=== PATIENT | male | born 1965 | race Caucasian/White ===

== ENCOUNTER 2021-07-02 08:03 | Outpatient (REF) | payer MEDICARE, SELFPAY ==
--- NOTE | ~2021-07-02 | XR_ITS ---
EXAMINATION: XR CERVICAL SPINE CLINICAL INFORMATION: Radiculopathy COMPARISON: None TECHNIQUE: 5 views FINDINGS: Postsurgical changes with anterior spinal fusion hardware at C4-C7. No evidence of hardware complications. Posterior alignment is maintained without significant subluxation. No acute fractures seen. Prevertebral soft tissues within normal limits. Lung apices are clear. XR/XR cervical spine 3V IMPRESSION: Postsurgical changes, with anterior spinal fusion hardware C4-C7. No evidence of acute fracture.
== END 2021-07-02 08:04 | disposition home or self-care (01) ==
LOC: HO.XRAY 08:03
PROVIDERS: PCP Internal Medicine; Visit Provider Physician Assistant Surgical
DX: M54.12 Radiculopathy, cervical region (principal)
CPT/HCPCS: 72040

== ENCOUNTER 2021-08-24 21:45 | Inpatient (IN) | payer MEDICARE, SELFPAY ==
--- NOTE | ~2021-08-24 | XR_ITS ---
EXAMINATION: XR CHEST CLINICAL INFORMATION: Shortness of breath. COMPARISON: Most recent chest radiograph dated 11/17/2019. TECHNIQUE: Frontal view of the chest was obtained. FINDINGS: No focal airspace consolidation. No pleural effusion or pneumothorax. Partially visualized cervical spine stabilization hardware. Stable cardiomediastinal silhouette. XR/XR chest 1V IMPRESSION: No acute cardiopulmonary findings.
--- NOTE | ~2021-08-24 | CT_ITS ---
EXAMINATION: CT HEAD WITHOUT CONTRAST CLINICAL INFORMATION: Unresponsive episode COMPARISON: 10/14/2014 TECHNIQUE: Contiguous axial imaging was performed from the skull base to vertex without intravenous administration of contrast. This CT examination was performed using dose optimization techniques as appropriate, variously including the following: *Automated exposure control *Adjustment of mA and/or kV according to patient size (this includes techniques or standardized protocols for targeted exams where dose is matched to indication/reason for exam; i.e. extremities or head) *Use of iterative reconstruction technique DLP: 805 mGy-cm FINDINGS: There is no evidence of acute intracranial hemorrhage or territorial infarction. No abnormal mass effect or midline shift is seen. Sweet to white matter differentiation is well preserved. No extra-axial fluid collections are identified. The ventricles are normal in size. There is no abnormal attenuation within the brain parenchyma. The osseous structures and soft tissues are normal. There is partial opacification of the bilateral ethmoid air cells. Extensive opacification of the left maxillary sinus. Bilateral maxillary sinus mucosal thickening. The mastoid air cells are well-aerated. CT/CT head/brain wo con IMPRESSION: No acute intracranial pathology.
[2021-08-24 21:52] VITALS: BP 122/78; PULSE 130; O2SAT 93
[2021-08-24 22:01] VITALS: BP 126/77; PULSE 106; RESP 24; TEMP 36.5; O2SAT 4; BMI 51.7
--- NOTE | 2021-08-24 22:02 | ECG_ITS ---
Test Reason : OVERDOSE Blood Pressure : / mmHG Vent. Rate : 101 BPM Atrial Rate : 101 BPM P-R Int : 176 ms QRS Dur : 088 ms QT Int : 368 ms P-R-T Axes : 058 -58 062 degrees QTc Int : 477 ms Sinus tachycardia Left axis deviation Inferior infarct , age undetermined Abnormal ECG When compared with ECG of 14-OCT-2014 12:21, Vent. rate has increased BY 49 BPM Inferior infarct is now Present T wave inversion no longer evident in Inferior leads Referred By: Cara Salomon Electronically Signed By:FRANTZ CONTRERAS MD
[2021-08-24 23:08] VITALS: BP 96/49; PULSE 95; RESP 20
--- NOTE | 2021-08-24 23:40 | ED.OVERDOSE ---
HPI - Overdose General Chief Complaint: Overdose Stated Complaint: od Time Seen by Provider: 08/24/21 22:02 Source: patient and EMS Mode of arrival: EMS History of Present Illness HPI Narrative: 55-year-old male brought in by EMS who reports that patient overdosed and required 12 mg of Narcan in the field but on asking the patient he adamantly states that he did not take any illicit drugs. Related Data Allergies Allergy/AdvReac Type Severity Reaction Status Date / Time No Known Allergies Allergy Mild NOT Unverified 05/30/20 14:53 APPLICABLE Review of Systems Review of Systems: Pertinent positives and negatives as stated in HPI 10 point review of systems is otherwise negative. PMFSH Past Medical History Source: nursing notes reviewed Social History Social History Advance Directives: No Advance Directives Information Provided: Yes Physical Exam Vital Signs: Vital Signs: Last Vital Signs Temp 97.7 F 08/24/21 22:01 Pulse 95 08/24/21 23:08 Resp 20 08/25/21 00:07 BP 96/49 L 08/24/21 23:08 Pulse Ox 4 L 08/24/21 22:01 Oxygen Flow Rate 4 08/24/21 22:01 BMI result Body Mass Index 51.7 VITAL SIGNS: Reviewed. GENERAL: Well developed, well nourished, in no acute distress. HEAD: Normocephalic/atraumatic EYES: PERRLA, EOMI OROPHARYNX: no oral lesions noted, posterior pharynx clear NECK: Supple, no adenopathy LUNGS: Normal breath sounds. No adventitious sounds or accessory muscle use. SpO2<94> CARDIOVASCULAR: Regular rate and rhythm without noted murmurs, no JVD or lower extremity edema. ABDOMEN: Obese, Soft, non-tender, non-distended with bowel sounds. RIGHT SHOULDER: No deformity noted no clicking on passive range of motion, palpable radial/ulnar pulses with good capillary refill and sensation is intact SKIN: Inspection of the skin reveals no rashes NEUROLOGIC: Alert and oriented x 4. Tremulous, Strength and sensation to light touch were grossly intact x 4. Course Course Course Narrative: 55-year-old male with history and clinical presentation suggestive of possible overdose and shortly after arrival patient was noted to be hypoxic and on clinical re-evaluation was noted to have rales, patient was placed on CPAP with good response and basic labs were obtained as well as EKG and chest x-ray. Patient was hypoxic and complaining of chest discomfort. 2330: Informed by nursing that patient was hypotensive, ordered 1 L IV bolus and decreased CPAP PEEP from 10-5 with good response. Patient remains easily arousable and denies any chest pain or shortness of breath at this time. On review of his documentation history patient is noted to have obstructive sleep apnea. Patient denies chest pain at this time. Review of all investigations demonstrates a leukocytosis of 20 without evidence in abdomen or chest of infectious etiology. At this time we do not have a urinalysis and troponins noted to be trending upwards, and suspect that this is primarily secondary to patient's unresponsive episode. On review of EMS documentation, patient was initially provided 4 mg of Narcan by police and then additional 8 mg by EMS. Although no compressions were required patient did require supplemental respiratory support with Ambu bag. Patient able to have CPAP titrated off and is now oxygenating at approximately 93-94% on 3 L nasal cannula. It has been noted that Q-waves within the inferior distribution are new since 03/2020 correlation with patient's symptoms and high sensitivity troponin levels less consistent with this being a recent/acute event. I discussed this case with the inpatient hospitalist who accepts admission. MDM - Overdose Lab Data Result diagrams: 08/24/21 23:32 08/24/21 23:32 Labs: Lab Results 08/24/21 08/24/21 08/25/21 Range/Units 23:32 23:32 01:30 WBC 20.4 H (4.8-10.8) X10*3/uL RBC 5.18 (4.60-5.80) X10*6/uL Hgb 15.1 (14.0-18.0) g/dl Hct 47.3 (42.0-52.0) % MCV 91.3 (80.0-98.0) fL MCH 29.2 (27.0-33.0) pg MCHC 31.9 (31.0-36.0) g/dl RDW 13.3 (11.0-16.0) % Plt Count 295 (160-400) X10*3/uL MPV 10.7 (9.4-12.4) fL Immature Gran % (Auto) 0.6 H (0.0-0.4) % Neut % (Auto) 89.2 H (45-73) % Lymph % (Auto) 5.4 L (20-40) % [place] % (Auto) 4.5 (2-11) % Eos % (Auto) 0.1 (0-4) % Baso % (Auto) 0.2 (0-2) % Lymph # (Auto) 1.1 L (1.2-4.9) X10*3/uL [place] # (Auto) 0.9 (0.1-1.2) X10*3/uL Eos # (Auto) 0.0 (0.0-0.4) X10*3/uL Baso # (Auto) 0.0 (0.0-0.2) X10*3/uL Abs Immat Gran (auto) 0.12 H (0.00-0.03) X10*3/uL Absolute Neuts (auto) 18.2 H (2.0-8.3) x10*3/uL Absolute Nucleated RBC 0.000 (0.0-0.012) X10*3/uL Nucleated RBC % (auto) 0.0 (0.0-0.2) /100WBC Sodium 142 (135-145) mmol/L Potassium 4.4 (3.3-5.1) mmol/L Chloride 104 (96-108) mmol/L Carbon Dioxide 31 H (22-29) mmol/L Anion Gap 11 L (12-20) BUN 15 (9-16) mg/dL Creatinine 1.35 (0.5-1.4) mg/dL Estim Creat Clear Calc 84.9 Estimated GFR 54 Random Glucose 128 H (60-115) mg/dL Lactic Acid (0.5-2.0) mmol/L Calcium 9.4 (8.4-10.2) mg/dL Total Bilirubin 0.3 (0.0-1.0) mg/dL AST 20 (5-37) U/L ALT 22 (0-40) U/L Alkaline Phosphatase 126 H (39-117) U/L Troponin I High Sens 104.5 H* (<3.5-35.0) ng/L B-Natriuretic Peptide (<100) pg/mL Total Protein 6.7 (6.5-8.0) g/dL Albumin 3.8 (3.5-5.0) g/dL 08/25/21 08/25/21 Range/Units 01:39 23:32 WBC (4.8-10.8) X10*3/uL RBC (4.60-5.80) X10*6/uL Hgb (14.0-18.0) g/dl Hct (42.0-52.0) % MCV (80.0-98.0) fL MCH (27.0-33.0) pg MCHC (31.0-36.0) g/dl RDW (11.0-16.0) % Plt Count (160-400) X10*3/uL MPV (9.4-12.4) fL Immature Gran % (Auto) (0.0-0.4) % Neut % (Auto) (45-73) % Lymph % (Auto) (20-40) % [place] % (Auto) (2-11) % Eos % (Auto) (0-4) % Baso % (Auto) (0-2) % Lymph # (Auto) (1.2-4.9) X10*3/uL [place] # (Auto) (0.1-1.2) X10*3/uL Eos # (Auto) (0.0-0.4) X10*3/uL Baso # (Auto) (0.0-0.2) X10*3/uL Abs Immat Gran (auto) (0.00-0.03) X10*3/uL Absolute Neuts (auto) (2.0-8.3) x10*3/uL Absolute Nucleated RBC (0.0-0.012) X10*3/uL Nucleated RBC % (auto) (0.0-0.2) /100WBC Sodium (135-145) mmol/L Potassium (3.3-5.1) mmol/L Chloride (96-108) mmol/L Carbon Dioxide (22-29) mmol/L Anion Gap (12-20) BUN (9-16) mg/dL Creatinine (0.5-1.4) mg/dL Estim Creat Clear Calc Estimated GFR Random Glucose (60-115) mg/dL Lactic Acid 1.3 (0.5-2.0) mmol/L Calcium (8.4-10.2) mg/dL Total Bilirubin (0.0-1.0) mg/dL AST (5-37) U/L ALT (0-40) U/L Alkaline Phosphatase (39-117) U/L Troponin I High Sens 61.4 H (<3.5-35.0) ng/L B-Natriuretic Peptide 19 (<100) pg/mL Total Protein (6.5-8.0) g/dL Albumin (3.5-5.0) g/dL ECG Data Attestation: I personally reviewed and interpreted this ECG as follows: Prior ECG tracings: available for review (03/21/2020 stress test) Interpretation: Sinus tachycardia, HR-101, no STEMI, but noted Q-waves in leads 2, 3, and AVF which are changes from the stress test obtained in March of 2020. MA/QRS/QTC are within normal limits. Discharge Plan Discharge Clinical Impression: Unresponsive episode, Hypoxia, Elevated troponin level Patient Disposition: Admitted As Inpatient
[2021-08-24 23:50] LABS: Basophils Percent Auto 0.2 % (0-2); Eosinophils Percent Auto 0.1 % (0-4); Hematocrit 47.3 % (42.0-52.0); Hemoglobin 15.1 g/dl (14.0-18.0); Imm Gran Abs Auto 0.12 X10*3/uL (0.00-0.03); Imm Gran Pct Auto 0.6 % (0.0-0.4); Lymphocytes Absolute Auto 1.1 X10*3/uL (1.2-4.9); Lymphocytes Percent Auto 5.4 % (20-40); MANUAL DIFF FLAG NO; Mean Corpuscular HGB Conc 31.9 g/dl (31.0-36.0); Mean Corpuscular Hemoglobin 29.2 pg (27.0-33.0); Mean Corpuscular Volume 91.3 fL (80.0-98.0); Mean Platelet Volume 10.7 fL (9.4-12.4); Monocytes Absolute Auto 0.9 X10*3/uL (0.1-1.2); Monocytes Percent Auto 4.5 % (2-11); Neutrophils Absolute Auto 18.2 x10*3/uL (2.0-8.3); Neutrophils Percent Auto 89.2 % (45-73); Platelet Count 295 X10*3/uL (160-400); Red Blood Count 5.18 X10*6/uL (4.60-5.80); Red Cell Distribution Width 13.3 % (11.0-16.0); White Blood Count 20.4 X10*3/uL (4.8-10.8)
[2021-08-25 00:07] VITALS: PULSE 94; RESP 20; O2SAT 93
[2021-08-25 00:07] LABS: Alanine Aminotransferase 22 U/L (0-40); Albumin Level 3.8 g/dL (3.5-5.0); Alkaline Phosphatase 126 U/L (39-117); Anion Gap 11 (12-20); Aspartate Amino Transferase 20 U/L (5-37); Bilirubin Total 0.3 mg/dL (0.0-1.0); Blood Urea Nitrogen 15 mg/dL (9-16); Calcium 9.4 mg/dL (8.4-10.2); Carbon Dioxide 31 mmol/L (22-29); Chloride 104 mmol/L (96-108); Creatinine Clr Calc Pharmacy 84.9; Estimated Glomerular Filt Rate 54; Glucose Random 128 mg/dL (60-115); Potassium 4.4 mmol/L (3.3-5.1); Sodium 142 mmol/L (135-145); Total Protein 6.7 g/dL (6.5-8.0)
[2021-08-25 00:44] LABS: B Type Natriuretic Peptide 19 pg/mL (<100); Troponin-I High Sensitivity 61.4 ng/L (<3.5-35.0)
--- NOTE | 2021-08-25 01:23 | HO.SUDE ---
Pt on bipap and sleeping. CARE/recovery team will approach pt again in the morning to complete SUDE.
[2021-08-25 01:58] LABS: Troponin-I High Sensitivity 104.5 ng/L (<3.5-35.0)
[2021-08-25 01:58] LABS: Lactic Acid 1.3 mmol/L (0.5-2.0)
[2021-08-25] MEDS: Piperacillin Sodium/Tazobactam 3.375 GM in 0.9 % Sodium Chloride 50 ML IV (02:11)
[2021-08-25] MEDS: 0.9 % Sodium Chloride 1,000 ML 999 ML IV ×2 (02:13→03:30)
--- NOTE | 2021-08-25 02:14 | ECG_ITS ---
Test Reason : SOB Blood Pressure : / mmHG Vent. Rate : 079 BPM Atrial Rate : 079 BPM P-R Int : 134 ms QRS Dur : 094 ms QT Int : 386 ms P-R-T Axes : 000 -45 -06 degrees QTc Int : 442 ms Sinus rhythm with marked sinus arrhythmia Left axis deviation Inferior infarct (cited on or before 24-AUG-2021) Abnormal ECG When compared with ECG of 24-AUG-2021 22:21, Nonspecific T wave abnormality now evident in Inferior leads Referred By: Cara Salomon Electronically Signed By:FRANTZ CONTRERAS MD
--- NOTE | 2021-08-25 02:50 | P.HPHOSP_ITS ---
History of Present Illness Date of Service: 08/25/21 Chief Complaint: unresponsive episode 55-year-old male with past medical history of hypertension, hyperlipidemia, depression, insomnia presented to the hospital with a chief complaint of unresponsive episode. For ER team patient was brought in by the EMS. And EMS mentioned that patient had an unresponsive episode at home; EMS noted him unresponsive on the floor, bradypnea, pinpoint pupils-initially patient was given Narcan 4 mg by police followed by EMS give another for the 4 mg of Narcan; patient still did not respond; patient was bagged briefly and given another 4 of Narcan with improvement in the mental status. Subsequently brought into the hospital for further evaluation. Patient mentioned that he does not recall the event. Denies any drug overdose. Mentioned that he took his gabapentin 900 mg and trazodone 300 mg and went to bed. Denies any fever chills cough. denies any chest pain palpitations lightheadedness or dizziness. Denies any GI or symptoms. Review of all other systems is negative except mentioned above ER course: Per ER team patient's pupils were normal on presentation; exam grossly nonfocal; chest x-ray showed no acute findings; urinalysis/U tox pending. EKG showed Q- waves in the inferior leads which are new complaint to the EKG from 2019. Patient denied any chest pain. Troponins elevated to 104 improved to 61. Admitted to the hospital for further management PMFSH Pertinent family history: mentions heart disease runs in the family Social History Advance Directives: No Advance Directives Information Provided: Yes Meds Allergies Allergy/AdvReac Type Severity Reaction Status Date / Time No Known Allergies Allergy Mild NOT Unverified 05/30/20 14:53 APPLICABLE Active Medications: Current Medications Acetaminophen (Acetaminophen 325 Mg Tablet) 650 mg PO Q6H PRN PRN Reason: Pain, Mild (Pain Scale 1-3) Enoxaparin Sodium (Enoxaparin Sodium 40 Mg/0.4 Ml Syringe) 40 mg SUBCUT Q24H ALEENA Sodium Chloride (Ns) 1,000 mls @ 50 mls/hr IVCONT .Q20H ALEENA Melatonin (Melatonin 3 Mg Tablet) 6 mg PO BEDTIME PRN PRN Reason: Insomnia Morphine Sulfate (Morphine Sulfate 4 Mg/Ml Cartridge) 1 mg IVPUSH Q4H PRN; Protocol PRN Reason: Pain, SOB Nitroglycerin (Nitroglycerin 0.4 Mg Tab.Subl) 0.4 mg SUBLINGUAL Q5MX3 PRN PRN Reason: Chest Pain Senna (Sennosides 8.6 Mg Tablet) 17.2 mg PO BEDTIME PRN PRN Reason: Constipation Sodium Chloride (0.9 % Sodium Chloride Flush 3 Ml Syringe) 3 ml IVFLUSH QSHIFT ALEENA Physical Exam Vital Signs and Narrative: Vital Signs: Last Vital Signs Temp 97.7 F 08/24/21 22:01 Pulse 95 08/24/21 23:08 Resp 20 08/25/21 00:07 BP 96/49 L 08/24/21 23:08 Pulse Ox 4 L 08/24/21 22:01 Oxygen Flow Rate 4 08/24/21 22:01 BMI result Body Mass Index 51.7 Gen: Appears be in no acute distress HEENT: NCAT, Moist mucosa. Pupils normal in size Pulmonary: Coarse breath sounds CVS: Normal S1-S2 Abdomen: BS+, Soft, Nontender Extremities: Warm well perfused Neuro: Alert and awake. oriented x3. Grossly nonfocal. Results Labs CBC and Chem 7: 08/24/21 23:32 08/24/21 23:32 Labs: Laboratory Results - last 24 hr 08/24/21 08/24/21 08/25/21 23:32 23:32 01:30 MCV 91.3 MCH 29.2 MCHC 31.9 RDW 13.3 Plt Count 295 MPV 10.7 Immature Gran % (Auto) 0.6 H Neut % (Auto) 89.2 H Lymph % (Auto) 5.4 L [place] % (Auto) 4.5 Eos % (Auto) 0.1 Baso % (Auto) 0.2 Lymph # (Auto) 1.1 L [place] # (Auto) 0.9 Eos # (Auto) 0.0 Baso # (Auto) 0.0 Abs Immat Gran (auto) 0.12 H Absolute Neuts (auto) 18.2 H Absolute Nucleated RBC 0.000 Nucleated RBC % (auto) 0.0 Anion Gap 11 L Estim Creat Clear Calc 84.9 Estimated GFR 54 Random Glucose 128 H Lactic Acid Calcium 9.4 Total Bilirubin 0.3 AST 20 ALT 22 Alkaline Phosphatase 126 H Troponin I High Sens 104.5 H* B-Natriuretic Peptide Total Protein 6.7 Albumin 3.8 08/25/21 08/25/21 01:39 23:32 MCV MCH MCHC RDW Plt Count MPV Immature Gran % (Auto) Neut % (Auto) Lymph % (Auto) [place] % (Auto) Eos % (Auto) Baso % (Auto) Lymph # (Auto) [place] # (Auto) Eos # (Auto) Baso # (Auto) Abs Immat Gran (auto) Absolute Neuts (auto) Absolute Nucleated RBC Nucleated RBC % (auto) Anion Gap Estim Creat Clear Calc Estimated GFR Random Glucose Lactic Acid 1.3 Calcium Total Bilirubin AST ALT Alkaline Phosphatase Troponin I High Sens 61.4 H B-Natriuretic Peptide 19 Total Protein Albumin Imaging Radiologist's Impressions: Impressions Chest X-Ray 08/24/21 22:29 IMPRESSION: No acute cardiopulmonary findings. Assessment and Plan (1) Unresponsive episode: Status: Acute 55-year-old male with past medical history of hypertension, hyperlipidemia, depression, insomnia presented to the hospital with a chief comp laint of unresponsive episode. unresponsive episode: Patient currently improved. Exam nonfocal. Will also obtain a CT head. Patient received 12 mg of Narcan at home by the EMS as patient noted to have bradypnea, pinpoint pupils. U tox pending ? Related to his home medications trazodone 300 mg and gabapentin 900 mg that he took prior to going to bed-> Will defer to the day hospitalist for medication adjustments if needed at the time of discharge. Chest x-ray showed no acute findings EKG showed Q-waves in the inferior leads. Troponins elevated- Presumed to be secondary to demand. Patient denies any chest pain. Echocardiogram. Cardiology consult. Acute hypoxia: Patient became acutely hypoxic in the ER. Briefly based on the CPAP - tapered down to nasal cannula once improved. Chest x-ray showed no acute findings. Nebulizations p.r.n.. DVT prophylaxis: SCD boots Code status: Full code Quality Stroke Does the patient have a stroke diagnosis?: No VTE Prior VTE?: No VTE Risk Level:: Medical - moderate - high VTE Device Contraindication: Treatment Not Indicated VTE Drug Contraindication: N/A - Med Ordered
[2021-08-25 04:13] LABS: COVID-19 Test Negative (Negative); IDNOW Serial# 9DD0AD1C
[2021-08-25] MEDS: 0.9 % Sodium Chloride 1,000 ML 50 ML IVCONT (05:33)
[2021-08-25] MEDS: Enoxaparin Sodium 40 MG/0.4 ML SYRINGE SUBCUT (05:39)
--- NOTE | 2021-08-25 05:52 | PC.NURSE ---
This RN spoke with Edy (significant other) to gain background, it was reported that patient was fine eating a snack before bed and that she woke up to her daughter screaming.
[2021-08-25 05:56] LABS: MANUAL DIFF FLAG NO
[2021-08-25 06:00] LABS: Basophils Percent Auto 0.2 % (0-2); Hematocrit 43.8 % (42.0-52.0); Imm Gran Abs Auto 0.09 X10*3/uL (0.00-0.03); Imm Gran Pct Auto 0.5 % (0.0-0.4); Lymphocytes Absolute Auto 1.1 X10*3/uL (1.2-4.9); Lymphocytes Percent Auto 6.2 % (20-40); Mean Corpuscular Hemoglobin 29.1 pg (27.0-33.0); Mean Corpuscular Volume 91.1 fL (80.0-98.0); Mean Platelet Volume 10.6 fL (9.4-12.4); Monocytes Absolute Auto 0.9 X10*3/uL (0.1-1.2); Neutrophils Absolute Auto 16.2 x10*3/uL (2.0-8.3); Neutrophils Percent Auto 88.1 % (45-73); Platelet Count 257 X10*3/uL (160-400); Red Blood Count 4.81 X10*6/uL (4.60-5.80); Red Cell Distribution Width 13.2 % (11.0-16.0); White Blood Count 18.4 X10*3/uL (4.8-10.8)
[2021-08-25 06:14] LABS: Anion Gap 11 (12-20); Blood Urea Nitrogen 17 mg/dL (9-16); Calcium 8.7 mg/dL (8.4-10.2); Carbon Dioxide 29 mmol/L (22-29); Chloride 107 mmol/L (96-108); Creatinine Clr Calc Pharmacy 109.2; Estimated Glomerular Filt Rate > 60; Glucose Random 97 mg/dL (60-115); Potassium 4.5 mmol/L (3.3-5.1); Sodium 142 mmol/L (135-145)
--- NOTE | 2021-08-25 07:39 | PC.NURSE ---
PT RESTING COMFORTABLY. REFUSING BKFST. AWAITING ROOM ASSIGNMENT
[2021-08-25 07:40] VITALS: BP 134/55; PULSE 78; RESP 16; O2SAT 98
[2021-08-25 08:13] VITALS: BP 133/76; PULSE 90; RESP 16; TEMP 37.3; O2SAT 98
[2021-08-25 08:17] VITALS: BP 133/76; PULSE 90
[2021-08-25] MEDS: Losartan Potassium 50 MG TABLET PO (08:17)
[2021-08-25] MEDS: Gabapentin 300 MG CAPSULE PO (08:18)
[2021-08-25] MEDS: ARIPiprazole 10 MG TABLET PO (08:18)
[2021-08-25] MEDS: Sertraline HCL 50 MG TABLET PO (08:18)
--- NOTE | 2021-08-25 09:30 | P.EN_ITS ---
Event Note Date of Service: 08/25/21 Event Note: patient seen and examined, labs, meds, imaging, vital reviewed. P bridgette was admitted this morning following an unresponsive episode of unclea circumstances and patient has no recolection, no focal finding, CT head ock, mild increase in troponon, elevated WBC but no evidence of infecton. He is having lots of nausea and vomitting this morning but no abdominal pain. Leukocytosis likely reactive. Drug screen, awaiting, cardiology eval, also requesting EEG to rule out seizure. O/w A/p per H andP of this morning.
--- NOTE | 2021-08-25 10:25 | PM.DS ---
DS: Providers Provider Date of Service: 08/25/21 Date of admission: 08/25/21 02:28 Primary care physician: Unknown Physician Consults: 08/25/21 02:38 Consult to Cardiology Routine Consulting Provider: Dru Christiansen Reason for consultation: elevated troponin DS: Diagnosis Discharge Diagnosis (1) Unresponsive episode: Status: Acute DS: Summary Hospital Course Hospital Course: Patient was admitted this morning with an episode of unresponsivness of unclear nature. He was to have further evaluation testing includind cardiology evaluation for elevated troponin and review of ECG and advise on further testing, EEG but decided he didn't want stay... could not convince him, neither I nor nurse could convince him, he was alert oriented to self, place, time and to situation. He understood he was taking a high risk which he fully embrace and assume full responsibility for his health including worsening conditions--including but not limited to fatal cardiac event, neuro event or, whatever happened happening again and as well as the posibility of .. He was able to repeat these back in his own word and proceeded to signs AMA form, I advsised him to follow up with his PCP or return to this hospital or any other hospital at any time with any health issue that comes up Final diagnosis: Syncope Hypoxia Leukocytosis Nusea and vomitting Elevated troponin I Time Spent with Patient Time attestation: Total time spent providing and/or coordinating discharge services: Discharge coordination time: Less than 30 minutes Quality: Stroke Does the patient have a stroke diagnosis?: No Physical Exam Vital Signs: Vital Signs: Last Vital Signs Temp 99.2 F 08/25/21 08:13 Pulse 90 08/25/21 08:17 Resp 16 08/25/21 08:13 BP 133/76 08/25/21 08:17 Pulse Ox 98 08/25/21 08:13 Oxygen Flow Rate 4 08/24/21 22:01 BMI result Body Mass Index 51.7 DS: Data Data Completed and Pending Labs on day of discharge: Laboratory Results - last 24 hr 08/24/21 08/24/21 08/25/21 23:32 23:32 01:30 WBC 20.4 H RBC 5.18 Hgb 15.1 Hct 47.3 MCV 91.3 MCH 29.2 MCHC 31.9 RDW 13.3 Plt Count 295 MPV 10.7 Immature Gran % (Auto) 0.6 H Neut % (Auto) 89.2 H Lymph % (Auto) 5.4 L [place] % (Auto) 4.5 Eos % (Auto) 0.1 Baso % (Auto) 0.2 Lymph # (Auto) 1.1 L [place] # (Auto) 0.9 Eos # (Auto) 0.0 Baso # (Auto) 0.0 Abs Immat Gran (auto) 0.12 H Absolute Neuts (auto) 18.2 H Absolute Nucleated RBC 0.000 Nucleated RBC % (auto) 0.0 Sodium 142 Potassium 4.4 Chloride 104 Carbon Dioxide 31 H Anion Gap 11 L BUN 15 Creatinine 1.35 Estim Creat Clear Calc 84.9 Estimated GFR 54 Random Glucose 128 H Lactic Acid Calcium 9.4 Total Bilirubin 0.3 AST 20 ALT 22 Alkaline Phosphatase 126 H Troponin I High Sens 104.5 H* B-Natriuretic Peptide Total Protein 6.7 Albumin 3.8 COVID-19 (AFTAB) COVID-19 Clin Com 08/25/21 08/25/21 08/25/21 01:39 03:54 05:41 WBC 18.4 H RBC 4.81 Hgb 14.0 Hct 43.8 MCV 91.1 MCH 29.1 MCHC 32.0 RDW 13.2 Plt Count 257 MPV 10.6 Immature Gran % (Auto) 0.5 H Neut % (Auto) 88.1 H Lymph % (Auto) 6.2 L [place] % (Auto) 5.0 Eos % (Auto) 0.0 Baso % (Auto) 0.2 Lymph # (Auto) 1.1 L [place] # (Auto) 0.9 Eos # (Auto) 0.0 Baso # (Auto) 0.0 Abs Immat Gran (auto) 0.09 H Absolute Neuts (auto) 16.2 H Absolute Nucleated RBC 0.000 Nucleated RBC % (auto) 0.0 Sodium Potassium Chloride Carbon Dioxide Anion Gap BUN Creatinine Estim Creat Clear Calc Estimated GFR Random Glucose Lactic Acid 1.3 Calcium Total Bilirubin AST ALT Alkaline Phosphatase Troponin I High Sens B-Natriuretic Peptide Total Protein Albumin COVID-19 (AFTAB) Negative COVID-19 Clin Com See Note 08/25/21 08/25/21 05:41 23:32 WBC RBC Hgb Hct MCV MCH MCHC RDW Plt Count MPV Immature Gran % (Auto) Neut % (Auto) Lymph % (Auto) [place] % (Auto) Eos % (Auto) Baso % (Auto) Lymph # (Auto) [place] # (Auto) Eos # (Auto) Baso # (Auto) Abs Immat Gran (auto) Absolute Neuts (auto) Absolute Nucleated RBC Nucleated RBC % (auto) Sodium 142 Potassium 4.5 Chloride 107 Carbon Dioxide 29 Anion Gap 11 L BUN 17 H Creatinine 1.05 Estim Creat Clear Calc 109.2 Estimated GFR > 60 Random Glucose 97 Lactic Acid Calcium 8.7 D Total Bilirubin AST ALT Alkaline Phosphatase Troponin I High Sens 61.4 H B-Natriuretic Peptide 19 Total Protein Albumin COVID-19 (AFTAB) COVID-19 Clin Com Discharge Plan Discharge Anticipated Discharge Date/Time: 08/25/21 10:51 Patient Disposition: Left Against Medical Advice Discharge Diagnosis: Syncope, unresponsiveness, elevated troponin, nausea and vomitting Referrals: Physician,Unknown J [Primary Care Provider] - 1 Week Discharge Medications: No Action losartan 50 mg tablet 1 tab PO DAILY RF: 0 meloxicam 15 mg tablet 1 tab PO DAILY RF: 0 trazodone 100 mg tablet 100 - 300 mg PO BEDTIME PRN (Reason: Insomnia) RF: 0 gabapentin 300 mg capsule 1 cap PO TID RF: 0 sertraline 50 mg tablet 1 tab PO DAILY RF: 0 aripiprazole 10 mg tablet 1 tab PO DAILY RF: 0 hydrochlorothiazide 12.5 mg tablet 1 tab PO DAILY RF: 0 Discharge Orders: Discharge Order (Routine); Ordered 08/25/21 Ordered By: Eber Cruz Care Plan Goals: Left AMA Health Concerns: syncope, elevated troponin, Plan of Treatment: advised to follow with PCP or return to hospital with any issues Assessment: as above
--- NOTE | 2021-08-25 10:51 | P.CDIC_ITS ---
CDI Concurrent Query Documentation Clarification: PHYSICIAN'S DOCUMENTATION REQUEST Date of Query: 08/25/21 1052 Patient Name: Parveen Valdovinos Admit Date: 08/25/21 Dear Doctor, A review of the medical record indicates additional documentation may be needed. Please review below and update the documentation accordingly. Verdana 4Bd Risk Factors/Clinical Indicators/Treatments Verdana 4d BMI: 51.7 If possible, please provide an associated diagnosis related to the abnormal BMI, such as: Body Mass Index: For a BMI >= 40: * Overweight * Obesity * Due to excess calories * Drug induced * Due to other cause * Severe or Morbid Obesity * With alveolar hypoventilation * Without alveolar hypoventilation Use of terms such as suspected, likely, concern for, or probable (associated with a specific diagnosis that is being evaluated, monitored, or treated as if it exists) are acceptable and can be coded in the inpatient setting, when documented at the time of discharge. Thank you, Minda Ogden [facility], CDIS Extension: [phone] Please use your independent medical judgment in providing your response. THIS QUERY IS PART OF THE PERMANENT MEDICAL RECORD
--- NOTE | 2021-08-25 10:51 | MHC.CDI.CONC ---
CDI Concurrent Query Documentation Clarification: PHYSICIAN'S DOCUMENTATION REQUEST Date of Query: 08/25/21 1052 Patient Name: Parveen Valdovinos Admit Date: 08/25/21 Dear Doctor, A review of the medical record indicates additional documentation may be needed. Please review below and update the documentation accordingly. Risk Factors/Clinical Indicators/Treatments BMI: 51.7 If possible, please provide an associated diagnosis related to the abnormal BMI, such as: Body Mass Index: For a BMI >= 40: Overweight Obesity Due to excess calories Drug induced Due to other cause Severe or Morbid Obesity With alveolar hypoventilation Without alveolar hypoventilation Use of terms such as suspected, likely, concern for, or probable (associated with a specific diagnosis that is being evaluated, monitored, or treated as if it exists) are acceptable and can be coded in the inpatient setting, when documented at the time of discharge. Thank you, Minda Ogden [facility], CDIS Extension: [phone] Please use your independent medical judgment in providing your response. THIS QUERY IS PART OF THE PERMANENT MEDICAL RECORD
--- NOTE | 2021-08-25 11:26 | MHC.CM.PN ---
Patient left AMA before he could be assessed by case management.
--- NOTE | 2021-08-25 11:46 | P.EN_ITS ---
Event Note Date of Service: 08/25/21 Event Note: I was consulted to see this patient for abnormal troponin unrespon sive episode. Reviewing the chart and found on the patient has left against medical advise and therefore could not complete a full evaluation.
--- NOTE | 2021-10-01 08:46 | P.CDIR_ITS ---
Documented by User: Minda Ogden [facility], CDIS 10/01/21 08:48 Retrospective Query PHYSICIAN'S DOCUMENTATION REQUEST Date of Query: 10/01/21 0846 Patient Name: Parveen Valdovinos Admit Date: 08/25/21 Dear Doctor, A review of the medical record indicates additional documentation may be needed. Please review below and update the documentation accordingly. Verdana 4Bd Risk Factors/Clinical Indicators/Treatments Verdana 4d Body mass index: 51.7 patient left AMA If possible, please provide an associated diagnosis related to the abnormal BMI, such as: For a BMI >= 40: * Overweight * Obesity * Due to excess calories * Drug induced * Due to other cause * Severe or Morbid Obesity Or: * BMI is not significant * Other (please specify) * Unable to determine Use of terms such as suspected, likely, concern for, or probable (associated with a specific diagnosis that is being evaluated, monitored, or treated as if it exists) are acceptable and can be coded in the inpatient setting, when documented at the time of discharge. Thank you, Minda Ogden [facility], CDIS Extension: [phone] Please use your independent medical judgment in providing your response. THIS QUERY IS PART OF THE PERMANENT MEDICAL RECORD Documented by User: Eber Arredondo MD 10/16/21 11:22 Retrospective Query Provider Response: Morbid Obesity
== END 2021-08-25 10:01 | disposition left against medical advice (07) | DRG 312 ==
LOC: HO.ED 08-25 03:59 → HO.EDOVER 08-25 04:05
PROVIDERS: Admitting Provider Hospitalist; Emergency Provider Student in an Organized Health Care Education/Training Program; PCP Internal Medicine; Visit Provider Internal Medicine
DX: R55 Syncope and collapse (principal); Z68.43 Body mass index [BMI] 50.0-59.9, adult; R11.2 Nausea with vomiting, unspecified; E66.01 Morbid (severe) obesity due to excess calories; R79.89 Other specified abnormal findings of blood chemistry; D72.829 Elevated white blood cell count, unspecified; Z20.822 Contact with and (suspected) exposure to COVID-19; Z79.1 Long term (current) use of non-steroidal anti-inflammatories (NSAID); Z79.899 Other long term (current) drug therapy
CPT/HCPCS: 36415; 70450; 71045; 80048; 80053; 83605; 83880; 84484; 85025; 87040; 87635; 93005; 94660; 95816; 96361; 96374; 99285; J1650; J2543

== ENCOUNTER 2022-07-28 10:32 | Outpatient (REF) | payer MEDICARE, SELFPAY ==
[2022-07-28 13:34] LABS: MANUAL DIFF FLAG NO
[2022-07-28 13:40] LABS: Basophils Absolute Auto 0.1 X10*3/uL (0.0-0.2); Basophils Percent Auto 1.1 % (0-2); Eosinophils Absolute Auto 0.2 X10*3/uL (0.0-0.4); Eosinophils Percent Auto 2.8 % (0-4); Hematocrit 45.5 % (42.0-52.0); Hemoglobin 15.3 g/dl (14.0-18.0); Imm Gran Abs Auto 0.01 X10*3/uL (0.00-0.03); Imm Gran Pct Auto 0.2 % (0.0-0.4); Lymphocytes Absolute Auto 1.8 X10*3/uL (1.2-4.9); Lymphocytes Percent Auto 27.4 % (20-40); Mean Corpuscular HGB Conc 33.6 g/dl (31.0-36.0); Mean Corpuscular Hemoglobin 30.5 pg (27.0-33.0); Mean Corpuscular Volume 90.6 fL (80.0-98.0); Mean Platelet Volume 10.4 fL (9.4-12.4); Monocytes Absolute Auto 0.5 X10*3/uL (0.1-1.2); Monocytes Percent Auto 8.2 % (2-11); Neutrophils Absolute Auto 3.9 x10*3/uL (2.0-8.3); Neutrophils Percent Auto 60.3 % (45-73); Platelet Count 354 X10*3/uL (160-400); Red Blood Count 5.02 X10*6/uL (4.60-5.80); White Blood Count 6.5 X10*3/uL (4.8-10.8)
[2022-07-28 14:21] LABS: Alanine Aminotransferase 23 U/L (0-40); Amylase 45 U/L (28-100); Aspartate Amino Transferase 19 U/L (5-37); Lipase 10 U/L (8-78)
[2022-07-28 14:44] LABS: Prostate Specific Antigen Scr 1.42 ng/mL (<0.05-4.0)
== END 2022-07-28 10:33 | disposition home or self-care (01) ==
LOC: HO.10HDL 10:32
PROVIDERS: Visit Provider Hospitalist
DX: Z12.5 Encounter for screening for malignant neoplasm of prostate (principal); R63.4 Abnormal weight loss
CPT/HCPCS: 36415; 82150; 83690; 84153; 84450; 84460; 85025

== ENCOUNTER 2023-05-21 10:58 | Outpatient (AMB) | payer MEDICARE, SELFPAY ==
[2023-05-21 11:17] VITALS: PULSE 54; O2SAT 98; BMI 30.5
--- NOTE | 2023-05-21 11:17 | A.OFFVIS_ITS ---
Intake Vital Signs 05/21/23 11:17 Height 5 ft 7 in Weight 195 lb BMI 30.5 Position Sitting Pulse 54 Pulse Source Pulse Oximeter Pulse Oximetry (%) 98 Oxygen Delivery Method Room Air Intake Visit Reasons: NPV-Memory disturbance-LVM Intake Note: Pt presents in office as a NPV for memory disturbance. Sales Operations Lead Required: No Allergies No Known Allergies Allergy (Mild, Unverified 05/21/23 11:19) NOT APPLICABLE HPI HPI Comments History of Present Illness Details 57y/o male comes for evaluation of memor y issues. He noticed short term memory issues about 1 year ago . He has trouble finding words, forgetting conversations, repeats questions, sometimes misplaces things around the house. He drives OK. He has h/o ISAK for past 30 years but not on any treatment. He has loud snoring, frequent arousals, witnessed apneas and excessive dyatime sleepiness. 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 He still smokes marijuana 4-5 times a week. [facility] Medical History (Updated 05/21/23 @ 15:08 by Millie Moore MD) HTN (hypertension) Chronic low back pain Lumbar spondylosis Cervical spondylosis Witnessed apneic spells Snoring Obstructive sleep apnea Cognitive impairment Surgical History (Updated 05/21/23 @ 11:28 by Flor Mejia CMA) History of penile implant S/P spinal surgery Hx of cholecystectomy History of back surgery Family History (Updated 05/21/23 @ 11:29 by Flor Mejia CMA) Father Diabetes Heart disease Kidney carcinoma Mother Heart disease Alzheimer disease Social History (Updated 05/21/23 @ 11:29 by Flor Mejia CMA) Alcohol intake: former Patient Tobacco Use Status: Current everyday Tobacco user Substance Use Type: Marijuana Physical Exam Vital Signs: Last Vital Signs Pulse 54 05/21/23 11:17 Pulse Ox 98 05/21/23 11:17 Oxygen Delivery Method Room Air 05/21/23 11:17 BMI result Body Mass Index 30.5 Const General: cooperative, healthy appearing and comfortable Nutritional Appearance: average body habitus Orientation/consciousness: patient oriented x3 Limitations: no limitations Eyes Pupils: Equal, round and reactive pupils present Neuro Other: antalgic gait Mild decreased facial expression and blink General: patient oriented x3, tone normal and moves all extremities Cranial nerves: Yes Facial sensation intact/muscles of mastication intact, Yes Equal, round and reactive pupils present, Yes Bilaterally intact EOM present, Yes Nystagmus not present, Yes Normal facial strength present, Yes Midline tongue present, Yes Symmetric palate elevation present and Yes Ability to bilaterally elevate shoulders present Cognition (Neuro): normal cognition Gait exam (Neuro): Antalgic gait present Motor exam (neuro): 5/5 motor strength present throughout and Normal motor muscle tone present throughout Deep tendon reflexes (DTR's): Right triceps reflex intensity grade: 1+, Left triceps reflex intensity grade: 1+, Rt Biceps (C5, C6): 1+, Left biceps reflex intensity grade: 1+, Right brachioradialis reflex intensity grade: 1+, Left brachioradialis reflex intensity grade: 1+, Right patellar reflex intensity grade: 1+ and Left patellar reflex intensity grade: 1+ Coordination: [id number] test normal Psych Appearance: grossly normal Orientation What is the (year) (season) (date) (day) (month)?: year, season, date, day and month Where are we (state) (county) (town or city) (hospital) (floor)?: state, county, town or city, hospital/clinic and floor Registration Name of 3 unrelated objects clearly and slowly, then ask patient to repeat all 3 of them. (1st repeat determines score. Make sure they can repeat all three): object 1, object 2 and object 3 Attention & Calculation (CHOOSE ONE) Spell WORLD backwards (DLROW): 5 letters Recall Ask patient to repeat the 3 items from question #3.: object 1 and object 2 Language Show patient a wristwatch & ask what it is. Repeat for pencil.: watch and pencil Ask the patient to repeat the phrase 'No ifs, ands, or buts' after you.: correct Ask the patient to 'take a piece of paper with their right hand' 'fold paper in half' 'place paper on floor': take paper in right hand and fold paper in half Print the sentence 'CLOSE YOUR EYES' on a piece. If patient actually closes eyes then score.: followed written direction Give patient a blank piece of paper & ask to write a sentence. Score if it contains a noun & verb.: sentence contains subject and verb Ask patient to copy figure of intersecting pentagons exactly. Score if all 10 angles & 2 intersects are included.: all 10 angles present & 2 are intersected Score Score: 28 Assessment & Plan Assessment & Plan (1) Cognitive impairment: Code(s): R41.89 - Other symptoms and signs involving cognitive functions and awareness (2) Obstructive sleep apnea: Code(s): G47.33 - Obstructive sleep apnea (adult) (pediatric) (3) Snoring: Code(s): R06.83 - Snoring (4) Witnessed apneic spells: Code(s): R06.81 - Apnea, not elsewhere classified Plan MRI Brain HST to reevaluate sleep apnea Labs - Vit B 12 TSH CBC cMP ESR Orders: Orders Complete Blood Count Auto Diff Today R41.89 - Other symptoms and signs involving cognitive functions and awareness Comprehensive Met. Panel Today R41.89 - Other symptoms and signs involving cognitive functions and awareness TSH reflex Free T4 Today R41.89 - Other symptoms and signs involving cognitive functions and awareness Vitamin B12 and Folate Today R41.89 - Other symptoms and signs involving cognitive functions and awareness Erythrocyte Sedimentation Rate Today R41.89 - Other symptoms and signs involving cognitive functions and awareness Vitamin D 25-OH (D2 and D3) Today R41.89 - Other symptoms and signs involving cognitive functions and awareness Coding Level of Care Code New Pt Level 4 (41274) Diagnoses Cognitive impairment R41.89 Obstructive sleep apnea G47.33 Snoring R06.83 Witnessed apneic spells R06.81
== END 2023-05-21 11:47 | disposition home or self-care (01) ==
PROVIDERS: Visit Provider Psychiatry & Neurology Neurology
DX: R41.89 Other symptoms and signs involving cognitive functions and awareness (principal); G47.33 Obstructive sleep apnea (adult) (pediatric); R06.83 Snoring
CPT/HCPCS: 99204

== ENCOUNTER → 2023-05-21 10:58 | Outpatient (BNVA) | payer MEDICARE, SELFPAY | PROVIDERS: Visit Provider Psychiatry & Neurology Neurology ==

== ENCOUNTER 2024-06-25 08:42 | Emergency (ER) | payer MEDICARE, SELFPAY ==
--- NOTE | ~2024-06-25 | CT_ITS ---
EXAMINATION: CT FACIAL BONES WITH CONTRAST CLINICAL INFORMATION: Cheek swelling; broken tooth. COMPARISON: None available. TECHNIQUE: Without the addition of intravenous contrast, multiple contiguous multidetector axial sections are obtained through the facial bones. Multiplanar reformatted images are submitted. This CT examination was performed using dose optimization techniques as appropriate, variously including the following: *Automated exposure control *Adjustment of mA and/or kV according to patient size (this includes techniques or standardized protocols for targeted exams where dose is matched to indication/reason for exam; i.e. extremities or head) *Use of iterative reconstruction technique DLP: 468 mGy-cm FINDINGS: Imaging is somewhat limited due to motion artifact. The paranasal sinuses are well aerated. There is mild mucosal thickening of the frontal sinuses and the frontoethmoidal recesses. There is opacification of numerous of the bilateral ethmoid air cells. There is near complete opacification of the bilateral ethmoid air cells and of the right sphenoid sinus. There is occlusion of the ostiomeatal recesses and of the sphenoethmoid recesses. An old, healed fracture is seen of the left nasal bone. There is a fracture of the right second molar. There has been partial extraction of the left first molar, with a portion of the root intact. The zygomas are intact bilaterally. The pterygoid plates are intact. The lamina papyracea are intact, without blowout fracture noted. The orbits and oval contents are symmetric and well-maintained. There is right malar soft tissue swelling. No abscess or soft tissue gas is noted. The mastoid air cells are well aerated and clear. CT/CT facial bones w IV con IMPRESSION: 1. There have been prior dental injuries and/or extractions, as detailed. There is right malar soft tissue swelling. No soft tissue abscess or gas is seen. 2. There is paranasal sinusitis. 3. No acute fracture is noted of the facial bones. Electronically signed by: Josep Byrd MD 06/25/2024 03:01 PM EDT
[2024-06-25 08:49] VITALS: BP 145/74; PULSE 64; RESP 18; TEMP 36.9; O2SAT 97; BMI 27.2
--- NOTE | 2024-06-25 08:57 | ED_ITS ---
HPI - Dental/Oral General Chief complaint: Dental/Oral Stated complaint: tooth pain-r side face swelling Time Seen by Provider: 06/25/24 08:57 Source: patient Mode of arrival: ambulatory Limitations: no limitations History of Present Illness ED Provider: Mary HPI Narrative: 58 yo male with PMH of cervical spondylsosis (surgical intervention x 5 wks prior, presents in c-collar), HTN, chronic LBP, ISAK, and cognitive impairment. Presents with right sided facial swelling related to recent tooth infection/broken tooth from Wednesday. States he was given Augmentin from his PCP yesterday, and feels as though the swelling is somewhat worse and moving further back on the right cheek towards his right ear. Denies any changes to breathing or difficulty with swallowing. States he took two doses yesterday of the antibiotics, had taken his am dose today but hadn't eaten prior and wasn't able to keep it down and threw it up. Denies fevers. Location: Tooth # Teeth map: 2 1. Context: history of dental caries Related Data Home Medications ?Medication ?Instructions ?Recorded ?Confirmed trazodone 100 mg tablet 100 - 300 mg PO BEDTIME PRN 08/25/21 08/25/21 Insomnia amlodipine 5 mg tablet 5 mg PO DAILY 05/21/23 buprenorphine 8 mg-naloxone 2 mg 1 film buccal DAILY 05/21/23 sublingual film (Suboxone) bupropion HCl 100 mg tablet 100 mg PO BID 05/21/23 gabapentin 300 mg capsule 300 mg PO DAILY 05/21/23 hydrochlorothiazide 12.5 mg tablet 25 mg PO DAILY 05/21/23 losartan 50 mg tablet 100 mg PO DAILY 05/21/23 oxcarbazepine 600 mg tablet 600 mg PO TID 05/21/23 sertraline 50 mg tablet 100 mg PO DAILY 05/21/23 tamsulosin 0.4 mg capsule 0.4 mg PO DAILY 05/21/23 Allergies Allergy/AdvReac Type Severity Reaction Status Date / Time No Known Allergies Allergy Mild NOT Verified 06/25/24 08:51 APPLICABLE Review of Systems 2 Review of Systems: As per HPI Yes all other systems are reviewed and are negative Constitutional: Constitutional: Reports as per HPI [facility] Past Medical History Medical History (Updated 06/25/24 @ 14:22 by Merary Mary, JUNIOR MECHANICAL ENGINEER) HTN (hypertension) Chronic low back pain Lumbar spondylosis Cervical spondylosis Witnessed apneic spells Snoring Obstructive sleep apnea Cognitive impairment Surgical History (Updated 05/21/23 @ 11:28 by Flor Mejia CMA) History of penile implant S/P spinal surgery Hx of cholecystectomy History of back surgery Family History Family History (Updated 05/21/23 @ 11:29 by Flor Mejia CMA) Father Diabetes Heart disease Kidney carcinoma Mother Heart disease Alzheimer disease Social History Social History (Updated 05/21/23 @ 11:29 by Flor Mejia CMA) Alcohol intake: former Patient Tobacco Use Status: Current everyday Tobacco user Substance Use Type: Marijuana Advance Directives: Yes Advance Directives Information Provided: Yes Advance Directives on File: No Physical Exam 2 Vital Signs: Vital Signs: Last Vital Signs Temp 98.5 F 06/25/24 08:49 Pulse 64 06/25/24 08:49 Resp 18 06/25/24 08:49 BP 145/74 H 06/25/24 08:49 Pulse Ox 97 06/25/24 08:49 O2 Del Method Room Air 06/25/24 08:49 BMI result Body Mass Index 27.2 Vital signs have been reviewed and appear to be correct. Blood pressure elevated. Heart rate normal. Respiratory rate normal. Temperature normal. Oxygen saturation normal. Const: General: cooperative, healthy appearing and no acute distress O rientation/consciousness: oriented to person, oriented to place, oriented to time and patient oriented x3 Limitations: no limitations HEENT: Head: Yes normocephalic and Yes atraumatic Ears: external ears normal and TM's normal bilaterally General nose exam: Normal external nose present Face and sinus: Yes face symmetric Face images: 1. swelling and tenderness Mouth: Normal oral and palatal mucosa present, lip normal, tongue normal, oropharynx normal and moist mucous membranes Teeth and gingiva: caries and poor dentition Teeth image: 1. tooth fractured vertically Throat: Yes uvula midline and No uvular edema Eyes: Pupils: Equal, round and reactive pupils present Neck: Neck: Yes normal visual inspection and Yes supple Resp: Effort & Inspection: normal respiratory effort and able to speak in complete sentences Auscultation: clear to auscultation bilaterally Cardio: Rate: regular rate Rhythm: regular rhythm Heart sounds: S1 normal heart sound present and S2 normal heart sound present GI: Palpation (GI): Soft to palpation and nontender Auscultation: n ormoactive bowel sounds : General: Yes no CVA tenderness Back/Spine/Pelvis: Back: no CVA tenderness Skin: General skin exam: elasticity normal and turgor normal Neuro: General: oriented to person, oriented to place, oriented to time, patient oriented x3, moves all extremities, no focal motor deficits and CN's II- XI intact bilaterally Cranial nerves: Yes Equal, round and reactive pupils present Cognition (Neuro): normal cognition Extrem: General: Yes full ROM, Yes no pedal edema and Yes no calf tenderness Psych: Mental Status: mental status grossly normal Affect: normal affect Thought process: Normal thought process present Medications Administered Discontinued Medications Generic Name Dose Route Start Last Admin Trade Name Vishnuq PRN Reason Stop Dose Admin Iohexol 100 ml 06/25/24 11:09 06/25/24 11:09 Iohexol 350 Mg/Ml 100 Ml Infus..Btl IV 06/25/24 11:10 85 ml ONCE ONE Administration Oxycodone HCl 5 mg 06/25/24 11:20 06/25/24 11:23 Oxycodone Hcl Immed Release 5 Mg Tablet PO 06/25/24 11:21 5 mg ONCE ONE Administration Medical Decision Making Medical Decision Making MDM Narrative: Patient is a 58 yo male with PMH of cervical spondylsosis (surgical intervention x 5 wks prior, presents in c-collar), HTN, chronic LBP, ISAK, and cognitive impairment. On exam patient is awake, A+Ox3, VS WNL, afebrile, normal neurological exam without focal deficits, physical exam findings as above. Given reported symptoms and physical exam findings, initial differential includes dental infection, dental abscess, jaw abscess. Labs notable for no leukocytosis, hyponatremia. Significant delay in radiologist read of CT face. Contacted [facility] at 12:50, told radiologist would look at images. At 13:47, contacted GABO Menendez to escalate this issue. Patient stated that he cannot wait any longer and wanted to leave against medical advice. Patient provided with list of dental clinics as he states he does not have a dentist at this time. Advised patient to complete full course of Augmentin prescribed by his PCP. Return precautions discussed. Patient verbalized understanding of return precautions and that he can return at any time should he change his mind. Advised patient that his sodium was low at today's visit and advised him to increase this in his diet, follow up with PCP to notify him of this. * The patient has decided to leave against medical advice because the wait is too long. * They have normal mental status and adequate capacity to make medical decisions. * The patient refuses hospital admission and wants to be discharged. * The risks have been explained to the patient, including worsening infection, sepsis, worsening illness, chronic pain, permanent disability and . * The patient was able to understand and state the risks and benefits of completing ED evaluation. This was witnessed by nurse Peri, MARTIN, and me. * They had the opportunity to ask questions about their medical condition. * The patient was treated to the extent that they would allow and knows that they may return for care at any time. Differential Diagnosis Differential Diagnoses: The differential diagnosis associated with the presentation includes As per [facility] Admission/Observation Consideration of admission/observation: Escalation of care including admission/observation considered Patient would have been admitted to the hospital had their work up had any findings where hospital admission was appropriate and their clinical presentation warranted hospital admission. Lab Data [facility] Lab Attestation statement: I reviewed the patient's lab results. As per [facility] 06/25/24 10:00 06/25/24 10:00 Labs: Lab Results 06/25/24 Range/Units 10:00 WBC 5.6 (4.8-10.8) X10*3/uL RBC 4.02 L (4.60-5.80) X10*6/uL Hgb 12.4 L (14.0-18.0) g/dl Hct 35.5 L D (42.0-52.0) % MCV 88.3 (80.0-98.0) fL MCH 30.8 (27.0-33.0) pg MCHC 34.9 (31.0-36.0) g/dl RDW 14.5 (11.0-16.0) % Plt Count 232 D (160-400) X10*3/uL MPV 9.2 L (9.4-12.4) fL Immature Gran % (Auto) 0.4 (0.0-0.4) % Neut % (Auto) 72.8 (45-73) % Lymph % (Auto) 16.1 L (20-40) % Amelia % (Auto) 7.1 (2-11) % Eos % (Auto) 2.7 (0-4) % Baso % (Auto) 0.9 (0-2) % Lymph # (Auto) 0.9 L (1.2-4.9) X10*3/uL Amelia # (Auto) 0.4 (0.1-1.2) X10*3/uL Eos # (Auto) 0.2 (0.0-0.4) X10*3/uL Baso # (Auto) 0.1 (0.0-0.2) X10*3/uL Abs Immat Gran (auto) 0.02 (0.00-0.03) X10*3/uL Absolute Neuts (auto) 4.1 (2.0-8.3) x10*3/uL Absolute Nucleated RBC 0.000 (0.0-0.012) X10*3/uL Nucleated RBC % (auto) 0.0 (0.0-0.2) /100WBC Sodium 125 L (135-145) mmol/L Potassium 4.6 (3.3-5.1) mmol/L Chloride 89 L (96-108) mmol/L Carbon Dioxide 28 (22-29) mmol/L Anion Gap 13 (12-20) BUN 8 L (9-16) mg/dL Creatinine 0.72 (0.5-1.4) mg/dL Estim Creat Clear Calc 102.0 Estimated GFR > 60 Random Glucose 115 (60-115) mg/dL Calcium 9.3 D (8.4-10.2) mg/dL Total Bilirubin 0.4 (0.0-1.0) mg/dL AST 11 (5-37) U/L ALT 9 (0-40) U/L Alkaline Phosphatase 135 H (39-117) U/L Total Protein 6.9 (6.5-8.0) g/dL Albumin 3.7 (3.5-5.0) g/dL External Record Review External record reviewed: Inpatient record, Office record and Outpatient record Critical Care Time Critical Care Time Critical Care Time: Yes Total Critical Care Time: 42 Attestation: I have personally provided critical care time exclusive of time spent on separately billable procedures. Time includes review of lab data, radiology results, discussion with consultants, and monitoring for potential decompensation. Intervention performed as documented. Discharge Plan Discharge Clinical Impression: Swelling of right side of face Patient Disposition: Left Against Medical Advice Additional Instructions: You were evaluated in the emergency department today for right-sided facial swelling. You chose to leave against medical advice prior to results of your CT scan becoming available. We recommend that you continue taking the antibiotics previously prescribed to you. You should follow-up with your dentist as soon as possible. Return to the emergency department if you develop additional swelling, fever, difficulty swallowing or breathing or any other concerning symptoms. Use the provided list of dental clinics to schedule follow up dental care [facility]ANG. Prescriptions: No Action trazodone 100 mg tablet 100 - 300 mg PO BEDTIME PRN (Reason: Insomnia) losartan 50 mg tablet 100 mg PO DAILY gabapentin 300 mg capsule 300 mg PO DAILY sertraline 50 mg tablet 100 mg PO DAILY hydrochlorothiazide 12.5 mg tablet 25 mg PO DAILY bupropion HCl 100 mg tablet 100 mg PO BID oxcarbazepine 600 mg tablet 600 mg PO TID tamsulosin 0.4 mg capsule 0.4 mg PO DAILY buprenorphine-naloxone [Suboxone] 8-2 mg film 1 film buccal DAILY amlodipine 5 mg tablet 5 mg PO DAILY Stand Alone Forms: Against Medical Advice Print Language: Taiwanese
--- OUTSIDE RECORDS SUMMARY | 2024-06-25 09:12 | XMS_ITS ---
Author Organization [facility] Address [address] [facility] [place] [address] Care Team Providers Care Sap Bpc Developer Name Role Phone Jennifer Proctor Primary Care Provider Mellissa Chow Unavailable [phone] ALLERGIES No Known Allergies REASON FOR VISIT PCP: 12/2023, Painful nail(s) aggrevated by shoes causing difficulty standing/walking, Skin Problem MEDICATIONS Medication SIG (Take, Route, Frequency, Duration) Notes Start Date End Date Status Keflex 500 MG 1 capsule Orally kirk ry 12 hrs for 10 day(s) 06/10/2017 Not-Taking traZODone HCl 150 MG Orally 1 or 2 times a day Not-Taking OXcarbazepine 600 MG Orally 3 times a day Not-Taking Lyrica 75 MG (Schedule V Drug) TA KE ONE CAPSULE BY MOUTH TWICE A DAY FOR 14 DAYS Oral for 14 Not-Taking Xarelto 20 MG TAKE 1 TABLET BY NEGRO TH DAILY IN THE AFTERNOON Oral for 30 Not-Taking oxyCODONE HCl 10 MG Orally 1-2/day Not-Taking Methadone HCl 35mg/day Not-Ta jeramy Percocet Not-Taking Ciclopirox 0.77 % 1 application to affected area Externally Twice a day to effected nails for 30 days 11/05/2023 Active Clotrimazole-Betamethasone 1-0.05 % 1 application to affected area Externally Twice a day to affected areas on feet for 30 days 11/05/2023 Active Gabapentin Active Hydrocortisone 2.5 % 1 application Externally Twice a day for 30 days Active Sertraline HCl 100 MG 1 tablet Orally On ce a day Active Lisinopril 20 MG 1 tablet Orally Once a day Active Aspirin 81 MG 1 tablet Orally Once a day for 30 day(s) Active Sleep Aid Active Suboxone 8-2 MG 1 film under the tongue and allow to dissolve Sublingual Two times a Week Active Amoxicillin Not-Taki ng Meloxicam 15 MG 1 tablet Orally Once a day Not-Taking Ciclopirox Olamine 0.77 % 1 application Externally Twice a day for 30 days Active amLODIPine Besylate 5 MG 1 tablet Orally Once a day Not-Taking Gabapentin 600 MG 1 tablet Orally Thre e times a day Not-Taking SOCIAL HISTORY Tobacco Use: Social History Observation Description Date Details (start date - stop date) Current Smoker NA - NA Sex Assigned At : Social History Observation Description Sex Assigned At Unknown Tobacco Use/Smoking Question Answer Notes Are you a: current smoker How often do you smoke cigarettes? every day How many cigarettes a day do you smoke? 6-10 How soon after you wake up do you smoke your fir st cigarette? 31-60 minutes Are you interested in quitting? Not ready to nasra t Alcohol Screen Question Answer Notes Did you have a drink containing alcohol in the p ast year? No Points 0 Interpretation Negative Tobacco use other than smoking: Question Answer Notes Are you an other tobacco user? Yes C igars Occassionally PROBLEMS No Known Problems VITAL SIGNS Height 5ft 7in in 01/18/2024 Weight 174 lbs 01/18/2024 BMI 27.25 kg/m2 01/18/2024 Encounters Encounter Location Date Provider Diagnosis [facility] [address] [address] 01/18/2024 Mellissa Hernández Tinea unguium B35.1 ; Tinea pedis of both feet B35.3 ; Pain in right toe(s) M79.674 and Pain in left toe(s) M79.675 ASSESSMENTS Encounter Date Diagnosis Assessment Notes Treatment Notes Treatment Clinical Notes 01/18/2024 Tinea unguium (ICD-10 - B35.1) 01/18/2024 Tinea pedis of both feet (ICD-10 - B35.3) 01/18/2024 Pain in right toe(s) (ICD-10 - M79.674) 01/18/2024 Pain in left toe(s) (ICD-10 - M79.675) PLAN OF TREATMENT Medication Medication Name Sig Start Date Stop Date Notes Ciclopirox Olamine 0.77 % 1 application Externally Twice a day for 30 days Next Appt Details Follow Up: 2 Months, Reason: Provider Name:Mellissa celestin, 09/19/2024 02:45:00 PM, [address] [place], [address], Procedure Notes * Category Sub-Category Detail Notes Debride Nail 6-10 Nail debridement Nail debridem ent performed extensively to reduce/remove overall nail length and girth, subungual debris, and necrotic tissue, by manual and electrical means with use of a nail nipper and/or dremel, to more viable healthy nail plate or bed tissue 6-10. Silver nitrate used for any petechial bleeding as necessary. Patient STILL chooses, no pharmaceutical tx (14797) Recommend a nail strengthener to right great toenail duye to cracking nail Progress Notes * Examination Category Sub-Category Detail Notes Neurological SENSORY: Neurological exa m reveals intact sensorium, pain sensation normal, vibration sensation intact, pinprick sensation is normal in the lower extremities, Pt denies, anesthesia, burning, paresthesia, tingling, B/L Dermatologic SKIN FINDINGS: Skin shows sign( s) of, erythema, scaling, in a moccasin fashion, no fissure(s) present, B/L General Examination GENERAL APPEARANCE: Reveals a pleasant, alert, well nourished, well-developed, well hydrated individual, who demonstrates proper attention to hygiene/body habitus, and is in no acute distress, Pt serves as own historian for office visit today ORIENTED: person, place, and t johann Vascular DP PULSES(B): 3/4, B/L PT PULSES(B): 3/4, B/L CAPILLARY FILL TIME: immediate, all digi ts, B/L TEMPERTURE GRADIENT(C): normal, warm to cool, proximal to distal, B/L, B/L Nails NAILS are: Elongated, overg rown, dystrophic, lytic, greater than 3mm thick, discolored and friable with crumbly malodorous subungual debris, with pain on palpation,1-5 Right foot, 2-5 Left foot; crack to distal nail T5 History and Physical Notes * HPI (History of Present Illness) Category Sub-Category Detail Notes Painful Nails Pt States Last PCP Visit: Date:: 024 Skin problems Nature: scaling rednes s Location: B/L Duration: several days
--- OUTSIDE RECORDS SUMMARY | 2024-06-25 09:12 | XMS_ITS | Patient Health Record ---
Author Organization [facility] Address [address] [place] [address] Care Team Providers Care Batch Maker Name Role Phone Jennifer Proctor Primary Care Provider Mellissa Chow Unavailable [phone] ALLERGIES No Known Allergies REASON FOR REFERRAL No Information MEDICATIONS Medication SIG (Take, Route, Frequency, Duration) Notes Start Date End Date Status Sertraline HCl 100 MG 1 tablet Orally On ce a day Active Lyrica 75 MG (Schedule V Drug) TA KE ONE CAPSULE BY MOUTH TWICE A DAY FOR 14 DAYS Oral for 14 Not-Taking Lisinopril 20 MG 1 tablet Orally Once a day Active Xarelto 20 MG TAKE 1 TABLET BY NEGRO TH DAILY IN THE AFTERNOON Oral for 30 Not-Taking Clotrimazole-Betamethasone 1-0.05 % 1 application to affected area Externally Twice a day to affected areas on feet for 30 days 11/05/2023 Active Gabapentin 600 MG 1 tablet Orally Thre e times a day Not-Taking Hydrocortisone 2.5 % 1 application Externally Twice a day for 30 days Active OXcarbazepine 600 MG Orally 3 times a day Not-Taking Keflex 500 MG 1 capsule Orally kirk ry 12 hrs for 10 day(s) 06/10/2017 Not-Taking Gabapentin Active traZODone HCl 150 MG Orally 1 or 2 times a day Not-Taking Sleep Aid Active oxyCODONE HCl 10 MG Orally 1-2/day Not-Taking Aspirin 81 MG 1 tablet Orally Once a day for 30 day(s) Active Ciclopirox Olamine 0.77 % 1 application Externally Twice a day for 30 days Active Meloxicam 15 MG 1 tablet Orally Once a day Not-Taking Ciclopirox 0.77 % 1 application to affected area Externally Twice a day to effected nails for 30 days 11/05/2023 Active amLODIPine Besylate 5 MG 1 tablet Orally Once a day Not-Taking Suboxone 8-2 MG 1 film under the tongue and allow to dissolve Sublingual Two times a Week Active Methadone HCl 35mg/day Not-Ta jeramy Percocet Not-Taking Amoxicillin Not-Taki ng IMMUNIZATIONS Vaccine Route Administration Date Status Comme nts COVID-19 Moderna Vaccine Unknown 02/05/2021 Administered First Dose: 12/13 05/03 SOCIAL HISTORY Tobacco Use: Social History Observation [...] Occassionally PROBLEMS No Known Problems VITAL SIGNS Blood pressure diastolic 80 mm Hg 06/20/2024 Height 5ft7in in 06/20/2024 Blood pressure systolic 120 mm Hg 06/20/2024 Weight 165 lbs 06/20/2024 BMI 25.84 kg/m2 06/20/2024 Encounters Encounter Location Date Provider Diagnosis [facility] [address] 08/27/2023 Mellissa Hernández 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 ; Tinea unguium B35.1 ; Pain in right toe(s) M79.674 and Pain in left toe(s) M79.[address] [facility] [address] 10/29/2023 Mellissa Hernández [facility] [address] 11/05/2023 Mellissa Hernández 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 ; Tinea pedis, left B35.3 ; Tinea unguium B35.1 ; Pain in right toe(s) M79.674 and Pain in left toe(s) M79.[address] [address] 01/18/2024 Mellissa Perica Tinea unguium B35.1 ; Tinea pedis of both feet B35.3 ; Pain in right toe(s) M79.674 and Pain in left toe(s) M79.[address] [address] 04/05/2024 Mellissa Perica Tinea unguium B35.1 ; Tinea pedis of both feet B35.3 ; Pain in right toe(s) M79.674 and Pain in left toe(s) M79.[address] [address] 06/20/2024 Mellissa Perica Tinea unguium B35.1 ; Pain in right toe(s) M79.674 and Pain in left toe(s) M79.675 ASSESSMENTS Encounter Date Diagnosis Assessment Notes Treatment Notes Treatment Clinical Notes 08/27/2023 Nummular eczematous dermatitis (ICD-10 - L30.0) 11/05/2023 Tinea pedis, left (ICD-10 - B35.3) 11/05/2023 Nummular eczematous dermatitis (ICD-10 - L30.0) 01/18/2024 Tinea unguium (ICD-10 - B35.1) 01/18/2024 Tinea pedis of both feet (ICD-10 - B35.3) 04/05/2024 Tinea unguium (ICD-10 - B35.1) 06/20/2024 Tinea unguium (ICD-10 - B35.1) 06/20/2024 Pain in right toe(s) (ICD-10 - M79.674) 06/20/2024 Pain in left toe(s) (ICD-10 - M79.675) 04/05/2024 Tinea pedis of both feet (ICD-10 - B35.3) 04/05/2024 Pain in right toe(s) (ICD-10 - M79.674) 01/18/2024 Pain in right toe(s) (ICD-10 - M79.674) 11/05/2023 Tinea unguium (ICD-10 - B35.1) 08/27/2023 Tinea unguium (ICD-10 - B35.1) 08/27/2023 Pain in right toe(s) (ICD-10 - M79.674) 11/05/2023 Pain in right toe(s) (ICD-10 - M79.674) 01/18/2024 Pain in left toe(s) (ICD-10 - M79.675) 04/05/2024 Pain in left toe(s) (ICD-10 - M79.675) 11/05/2023 Pain in left toe(s) (ICD-10 - M79.675) 08/27/2023 Pain in left toe(s) (ICD-10 - M79.675) PLAN OF TREATMENT Pending Test Test Name Order Date [id number] NAIL, 6 OR MORE 07/26/2017 [id number]-PKAKFPR NAIL, 6 OR MORE 03/27/2015 70350-FECKYGO NAIL, 6 OR MORE 07/03/2015 76176-RDEBEAV NAIL, 6 OR MORE 10/03/2015 59867-RYWOJOD NAIL, 6 OR MORE 01/02/2016 04877-EWEYSAY NAIL, 6 OR MORE 11/19/2016 93855-LICMFJR NAIL, 6 OR MORE 02/18/2017 [id number]-TSAXBFB NAIL, 6 OR MORE 05/13/2017 64753-HCLICAB NAIL, 6 OR MORE 10/06/2017 10093-NECZAFD NAIL, 6 OR MORE 01/03/2018 19912-XYFKGCM NAIL, 6 OR MORE 01/25/2018 93530-FDHTUKV NAIL, 6 OR MORE 04/07/2018 90851-XFFRHTS NAIL, 6 OR MORE 04/01/2016 11157-CDCXYWS NAIL, 6 OR MORE 07/02/2016 35788-SOVDNFT NAIL, 6 OR MORE 08/08/2018 70401-KRFCLLW NAIL, 6 OR MORE 11/07/2018 41905-MESJQQI NAIL, 6 OR MORE 01/30/2019 45516-OYWTHBZ NAIL, 6 OR MORE 11/12/2014 76864-Ovkfdykh Plate 11/12/2014 15094-Tjaqjhly Plate 08/08/2018 79837-Wouhyevm Plate 07/02/2016 22447-Emetqqdu Plate 04/01/2016 25277-Bpcvjydw Plate 04/07/2018 74482-Apskmcpd Plate 01/02/2016 94289-Ntnzxooz Plate 07/03/2015 98448-Klmegraz Plate Each Additional 07078-Gusoovut Plate Each Additional 92820-Vhpezqwe Plate Each Additional 50698- Debride <25 sq cm 11/26/2014 03602- Debride <25 sq cm 07/26/2017 92114-NWCKSPZ SKIN/TISSUE 06/24/2017 60624-ELGVNVE SKIN/TISSUE 07/07/2017 Next Appt Details Provider Name:Mellissa celestin, 09/19/2024 02:45:00 PM, [address] [place], [address], Insurance Providers Payer Name Payer Address Payer Phone Subscriber Number Group Number Insured Name Patient Relationship to Insured Coverage Start Date Coverage End Date Medicare National [facility] [address] [place] [address] [id number] Parveen Valdovinos Self - patient is the insured [employer] Preferred [address] [place] [address] [phone] [id number] Parveen Valdovinos Self - patient is the insured MEDICAL (GENERAL) HISTORY Medical History History ICD Code Anxiety Arthritis Back,Hip,and Knee pain Depression Headaches High blood pressure Psychiatric disorder Chicken pox Measles Joint implants/screws blood clots in lungs Stroke Surgical History Surgery Date(Month/Year) 3 Back surgeries cholecystectomy kidney surgery penile [facility] 02/2015 back surgery 03/2019 back surgery 01/2021 Neck surgery 05/19/24 Hospitalization History Reason Date(Month/Year) [facility]- Pt wasn't feeling well - pt fell/ poss. fainted - they used Narcan 08/24/2021 [facility]- Neck 01/31 [facility]- blood clots in lungs and legs 02/2017
--- OUTSIDE RECORDS SUMMARY | 2024-06-25 09:12 | XMS_ITS ---
Author Organization [facility] Address [address] [facility] [place] [address] Care Team Providers Care Stakeholder Manager Name Role Phone Jennifer Proctor Primary Care Provider Mellissa Chow Unavailable [phone] ALLERGIES No Known Allergies REASON FOR VISIT Painful nail(s) aggrevated by shoes causing difficulty standing/walking MEDICATIONS Medication SIG (Take, Route, Frequency, Duration) Notes Start Date End Date Status Gabapentin 600 MG 1 tablet Orally Thre e times a day Not-Taking OXcarbazepine 600 MG Orally 3 times a day Not-Taking Meloxicam 15 MG 1 tablet Orally Once a day Not-Taking amLODIPine Besylate 5 MG 1 tablet Orally Once a day Not-Taking Lyrica 75 MG (Schedule V Drug) TA KE ONE CAPSULE BY MOUTH TWICE A DAY FOR 14 DAYS Oral for 14 Not-Taking Keflex 500 MG 1 capsule Orally kirk ry 12 hrs for 10 day(s) 06/10/2017 Not-Taking traZODone HCl 150 MG Orally 1 or 2 times a day Not-Taking Xarelto 20 MG TAKE 1 TABLET BY NEGRO TH DAILY IN THE AFTERNOON Oral for 30 Not-Taking oxyCODONE HCl 10 MG Orally 1-2/day Not-Taking Methadone HCl 35mg/day Not-Ta Clotrimazole-Betamethasone 1-0.05 % 1 application to affected area Externally Twice a day to affected areas on feet for 30 days 11/05/2023 Active Hydrocortisone 2.5 % 1 application Externally Twice a day for 30 days Active Ciclopirox Olamine 0.77 % 1 application Externally Twice a day for 30 days Active Ciclopirox 0.77 % 1 application to affected area Externally Twice a day to effected nails for 30 days 11/05/2023 Active Percocet Not-Taking Aspirin 81 MG 1 tablet Orally Once a day for 30 day(s) Active Gabapentin Active Sertraline HCl 100 MG 1 tablet Orally On ce a day Active Lisinopril 20 MG 1 tablet Orally Once a day Active Sleep Aid Active Suboxone 8-2 MG 1 film under the tongue and allow to dissolve Sublingual Two times a Week Active Amoxicillin Not-Taki ng SOCIAL HISTORY Tobacco Use: Social History Observation [...] Problems VITAL SIGNS Height 5ft 7in in 04/05/2024 Weight 174 lbs 04/05/2024 BMI 27.25 kg/m2 04/05/2024 Encounters Encounter Location Date Provider Diagnosis [facility] [address] [place] [address] 04/05/2024 Mellissa Hernández Tinea unguium B35.1 ; Tinea pedis of both feet B35.3 ; Pain in right toe(s) M79.674 and Pain in left toe(s) M79.675 ASSESSMENTS Encounter Date Diagnosis Assessment Notes Treatment Notes Treatment Clinical Notes 04/05/2024 Tinea unguium (ICD-10 - B35.1) 04/05/2024 Tinea pedis of both feet (ICD-10 - B35.3) 04/05/2024 Pain in right toe(s) (ICD-10 - M79.674) 04/05/2024 Pain in left toe(s) (ICD-10 - M79.675) PLAN OF TREATMENT Next Appt Details Follow Up: 2 Months, Reason: Provider Name:Mellissa Sarita celestin, 09/19/2024 02:45:00 PM, [address] [facility], [place], [address], Procedure Notes * Category Sub-Category Detail Notes [...] necessary. Patient STILL chooses, no pharmaceutical tx (43914) Recommend a nail strengthener to right great toenail duye to cracking nail Progress Notes * Examination Category Sub-Category Detail Notes Neurological SENSORY: Neurological exa m reveals intact sensorium, pain sensation normal, vibration sensation intact, pinprick sensation is normal in the lower extremities, Pt denies, anesthesia, burning, paresthesia, tingling, B/L Dermatologic SKIN FINDINGS: Skin shows appro ximately __90_% LESS sign(s) of, erythema, scaling, in a moccasin fashion, [...]
--- OUTSIDE RECORDS SUMMARY | 2024-06-25 09:12 | XMS_ITS ---
Author Organization [facility] Address [address] [place] [address] Care Team Providers Care Manager Field Investigations Name Role Phone Jennifer Proctor Primary Care Provider Mellissa Chow Unavailable [phone] ALLERGIES No Known Allergies REASON FOR VISIT [...] 1 tablet Orally Once a day Not-Taking Amoxicillin Not-Taki ng Lyrica 75 MG (Schedule V Drug) TA KE ONE CAPSULE BY MOUTH TWICE A DAY FOR 14 DAYS Oral for 14 Not-Taking Xarelto 20 MG TAKE 1 TABLET BY NEGRO TH DAILY IN THE AFTERNOON Oral for 30 Not-Taking Keflex 500 MG 1 capsule Orally kirk ry 12 hrs for 10 day(s) 06/10/2017 Not-Taking traZODone HCl 150 MG Orally 1 or 2 times a day Not-Taking oxyCODONE HCl 10 MG Orally 1-2/day Not-Taking Clotrimazole-Betamethasone 1-0.05 % 1 application to affected area Externally Twice a day to affected areas on feet for 30 days 11/05/2023 Active Ciclopirox Olamine 0.77 % 1 application Externally Twice a day for 30 days Active Ciclopirox 0.77 % 1 application to affected area Externally Twice a day to effected nails for 30 days 11/05/2023 Active Methadone HCl 35mg/day Not-Ta jeramy Percocet Not-Taking Sertraline HCl 100 MG 1 tablet Orally On ce a day Active Lisinopril 20 MG 1 tablet Orally Once a day Active Hydrocortisone 2.5 % 1 application Externally Twice a day for 30 days Active Gabapentin Active Aspirin 81 MG 1 tablet Orally Once a day for 30 day(s) Active Sleep Aid Active Suboxone 8-2 MG 1 film under the tongue and allow to dissolve Sublingual Two times a Week Active SOCIAL HISTORY Tobacco Use: Social History Observation [...] in quitting? Not ready to nasra t Tobacco use other than smoking: Question Answer Notes Are you an other tobacco user? Yes C igars Occassionally PROBLEMS No Known Problems VITAL SIGNS Height 5ft7in in 06/20/2024 Weight 165 lbs 06/20/2024 BMI 25.84 kg/m2 06/20/2024 Blood pressure systolic 120 mm Hg 06/20/20 24 Blood pressure diastolic 80 mm Hg 024 Encounters Encounter Location Date Provider Diagnosis [facility] [place] [address] [place] [address] 06/20/2024 Mellissa Hernández Tinea unguium B35.1 ; Pain in right toe(s) M79.674 and Pain in left toe(s) M79.675 ASSESSMENTS Encounter Date Diagnosis Assessment Notes Treatment Notes Treatment Clinical Notes 06/20/2024 Tinea unguium (ICD-10 - B35.1) 06/20/2024 Pain in right toe(s) (ICD-10 - M79.674) 06/20/2024 Pain in left toe(s) (ICD-10 - M79.675) PLAN OF TREATMENT Next Appt Details Follow Up: 2 Months, Reason: Provider Name:Mellissa celestin, 09/19/2024 02:45:00 PM, [address] [place] [address], [address], Procedure Notes * Category Sub-Category Detail Notes [...] necessary. Patient STILL chooses, no pharmaceutical tx (88409) Recommend a nail strengthener to right great toenail duye to cracking nail Progress Notes * Examination Category Sub-Category Detail Notes Neurological SENSORY: Neurological exa m reveals intact sensorium, pain sensation normal, vibration sensation intact, pinprick sensation is normal in the lower extremities, Pt denies, anesthesia, burning, paresthesia, tingling, B/L Dermatologic SKIN FINDINGS: Skin exam reveal s normal color, texture, elasticity, and turgor. There are no masses, nor excrescences. The interspaces are clear, B/L General Examination GENERAL APPEARANCE: Reveals a [...]
--- OUTSIDE RECORDS SUMMARY | 2024-06-25 09:13 | XMS_ITS ---
Author Organization [facility] Address [address] [facility] [address] [place] [address] Care Team Providers Care Limnologist Name Role Phone HCARLEY BELLO Primary Care Provider REASON FOR VISIT Additional Request for Surgery Encounters Encounter Location Date Provider Diagnosis [facility] [address] [facility] [address] [place] [address] 05/18/2024 CHARLEY BELLO PLAN OF TREATMENT No Information Progress Notes * Parveen TERANDOB: 4 (58 yo M)Acc No.[id number]:05/18/2024 Patient:??Parveen TERAN :1965?Age:58 Y?Sex:Sukh arreguin Address:[place] [address] * true * Date:??
--- OUTSIDE RECORDS SUMMARY | 2024-06-25 09:13 | XMS_ITS ---
Author Organization [facility] Address [address] [facility] [address] [place] [address] Care Team Providers Care Manager Cargo Name Role Phone CHARLEY BELLO Primary Care Provider [phone] REASON FOR VISIT Gabapentin rx MEDICATIONS Medication SIG (Take, Route, Fr equency, Duration) Notes Start Date End Date Status Gabapentin 600 MG 1 tablet Orally 3 ti me a day for 30 days Active Encounters Encounter Location Date Provider Diagnosis [address] [place] [address] 06/15/2024 CHARLEY BELLO PLAN OF TREATMENT Medication Medication Name Sig Start Date Stop Date Notes Gabapentin 600 MG 1 tablet Orally 3 time a day for 30 days Progress Notes * Parveen TERANDOB: 4 (58 yo M)Acc No.[id number]:06/15/2024 Patient:??Parveen TERAN :1965?Age:58 Y?Sex:Sukh rodríguez Address:[address] [place] [address] [place] [address] * Refills?? Refill Gabapentin Tablet, 600 MG, Orally, 90, 1 tablet, 3 time a day, 30 days, Refills=5 * true * Date:??
--- OUTSIDE RECORDS SUMMARY | 2024-06-25 09:13 | XMS_ITS ---
Author Organization [facility] Address [address] [facility] [address] [place] [address] Care Team Providers Care Psychometrician Name Role Phone CHARLEY BELLO Primary Care Provider REASON FOR VISIT Pre op notes Encounters Encounter Location Date Provider Diagnosis [address] [place] [address] 05/16/2024 CHARLEY BELLO PLAN OF TREATMENT No Information Progress Notes * Parveen TERANDOB: 4 (58 yo M)Acc No.[id number]:05/16/2024 Patient:??Parveen TERAN :1965?Age:58 Y?Sex:Sukh arreguin Address:[place] [address] * true * Date:??
--- OUTSIDE RECORDS SUMMARY | 2024-06-25 09:14 | XMS_ITS | Continuity of Care Document ---
Author Organization [facility] Address [address] [place] [address] tejas, [address] [place] [address]- Care Team Providers Care Machine Straw Hat Presser Name Role Phone Jennifer Proctor MD Primary Care Physician Encounter [facility] Date(s): 05/11/23 - 06/10/23 [facility] [address] [place] [address] Drive, [address] [place], [place] [address] Allergies, Adverse Reactions, Alerts No Known Medication Allergies Immunizations Given and Recorded Vaccine Date Status Refusal Reason influenza virus vaccine, inactivated 06/13/18 Give n influenza virus vaccine, inactivated 1 07/02/17 Gi yaima influenza virus vaccine, inactivated 07/17/16 Give n influenza virus vaccine, inactivated 09/24/14 Give n Influenza Virus Vaccine (oldterm) 2 05/14/15 Given tetanus/diphtheria/pertussis, acel(Tdap) 10/08/14 Given pneumococcal 23-valent vaccine 09/24/14 Given 1Result Comment: [07/02/2017] [facility]: [id number] 2Admin Note: [facility] Medications albuterol CFC free 90 mcg/inh inhalation aerosol 2, puffs, Inhalation, Every 4 hours, PRN, # 1 each, Refills 3, Tot. Refills 3, Maintenance, 12/07/16 16:24:41, Aerosol, Route to Pharmacy Electronically, [id number], [facility]/pharmacy #[id number], Compound Start Date: 12/07/16 Stop Date: 04/06/17 Status: Ordered Flonase 50 mcg/inh nasal spray 1 sprays, Nares, Both, 2 times a day, PRN Allergy symptoms, # 16 Gm, 5 Refills, Maintenance, 05/04/16 11:46:16, [place], 1 sprays Nares, Both 2 times a day,PRN:Allergy symptoms Start Date: 05/04/16 Status: Ordered Hibiclens 4% soap 1 applicator, Topically, Once, # 960 mL, 0 Refills, Soft Stop, 02/04/18 11:56:53 EDT, 1 applicator Topically Once Start Date: 02/04/18 Status: Ordered hydroCHLOROthiazide 12.5 mg oral capsule See Instructions, # 90 capsule, Refills 3 Tot. Refills 3, TAKE ONE CAPSULE BY MOUTH EVERY DAY, [facility]/pharmacy #[id number] Start Date: 07/11/19 Status: Ordered Lexapro 10 mg oral tablet 1 tablet = 10 mg, By Mouth, Daily, 0 Refills, Maintenance, 03/31/18 13:02:49 EDT Start Date: 03/31/18 Status: Ordered losartan 50 mg oral tablet 50 mg, 1, tablet, By Mouth, Daily, # 90 tablet, Refills 3, Tot. Refills 3, Maintenance, 11/21/18 13:45:07 EDT, Route to Pharmacy Electronically, [id number], [facility]/pharmacy #[id number] Start Date: 11/21/18 Status: Ordered meloxicam 15 mg oral tablet 1 tablet = 15 mg, By Mouth, Daily, 0 Refills, Maintenance, 03/02/18 9:51:52 EDT Start Date: 03/02/18 Status: Ordered methadone 10 mg oral tablet 1 tablet = 10 mg, By Mouth, Every 6 hours, PRN for pain, 0 Refills, Maintenance, 03/03/19 8:50:28 EDT, Tablet Start Date: 03/03/19 Status: Ordered methadone 5 mg oral tablet TAKE 2 TABLETS BY MOUTH IN THE MORNING TAKE 1 TABLET EVERY 8 HOURS IN AFTERNOON AND EVENING Start Date: 03/31/18 Status: Ordered omeprazole 20 mg oral delayed release tablet 1 tablet = 20 mg, By Mouth, Daily, Take at least 30 min before food, # 90 tablet, 3 Refills, Maintenance, 11/21/18 13:45:18 EDT Start Date: 11/21/18 Status: Ordered oxyCODONE 10 mg oral tablet 1 tablet = 10 mg, By Mouth, Daily, 0 Refills, Maintenance, 12/30/18 13:19:56 EDT Start Date: 12/30/18 Status: Ordered tiZANidine 4 mg oral tablet 4 mg, 1, tablet, By Mouth, Every 8 hours, # 90 tablet, Refills 0, Maintenance, 03/02/18 9:51:37 EDT Start Date: 03/02/18 Status: Ordered Problem List Condition Confirmation Course Effective Dates Status H ealth Status Informant Acute bronchitis Confirmed Active Allergic rhinitis Confirmed Active Angiomyolipoma of right kidney Confirmed Active Anxiety Confirmed Active Asthma Confirmed Active Chronic bipolar disorder Confirmed Active Marijuana use Confirmed Active Chronic low back pain 1 Confirmed Active Cigarette smoker Confirmed Active Acute dysfunction of left Eustachian tube Confirmed Active Continuous epigastric pain Confirmed Active Essential hypertension Confirmed Active GERD (gastroesophageal reflux disease) Confirmed Active senior living current use of anticoagulant Confirmed Active H/O suicide attempt Confirmed Active H/O nausea and vomiting Confirmed Active Chronic daily headache Confirmed Active History of alcohol abuse Confirmed Active Hypertension Confirmed Active Insomnia Confirmed Active Kidney lesion Confirmed Active Low back pain Confirmed Active Failed back syndrome, lumbar Confirmed Active 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 Physician - Primary Care Member Role: PCP Address: Address: [address] [place] [address]- Care Team Related Persons Name: FORTUNATO REY Address: home [address] [place] [address]
--- OUTSIDE RECORDS SUMMARY | 2024-06-25 09:14 | XMS_ITS | Continuity of Care Document ---
Author Organization [facility] Address [address] [place], [place] [address]luh lazaro, [address] [place] [address]- Care Team Providers Care Sewer Inspector Name Role Phone Jennifer Proctor MD Primary Care Physician [phone] Encounter [facility] Date(s): 05/26/23 - 06/02/23 [facility] [address] [place] [address] Drive, [address] [place], [place] [address] Attending Physician: Fabricio Duffy MD Referring Physician: Jennifer Proctor MD Allergies, Adverse Reactions, Alerts No Known Medication [...] 23-valent vaccine 09/24/14 Given 1Result Comment: [07/02/2017] [facility]: [id number] 2Admin Note: [facility] Medications albuterol CFC free 90 mcg/inh inhalation aerosol 2, puffs, Inhalation, Every 4 hours, PRN, # 1 each, Refills 3, Tot. Refills 3, Maintenance, 12/07/16 16:24:41, Aerosol, Route to Pharmacy Electronically, [id number], [id number], Compound Start Date: 12/07/16 Stop Date: 04/06/17 Status: Ordered Flonase 50 mcg/inh nasal spray 1 sprays, Nares, Both, 2 times a day, PRN Allergy symptoms, # 16 Gm, 5 Refills, Maintenance, 05/04/16 11:46:16, [place], 1 sprays Nares, Both 2 times a day,PRN:Allergy symptoms Start Date: 05/04/16 Status: Ordered Hibiclens 4% soap 1 applicator, Topically, Once, # 960 mL, 0 Refills, Soft Stop, 02/04/18 11:56:53 EDT, 1 applicator Topically Once Start Date: 02/04/18 Status: Ordered hydroCHLOROthiazide 12.5 mg oral capsule See Instructions, # 90 capsule, Refills 3 Tot. Refills 3, TAKE ONE CAPSULE BY MOUTH EVERY DAY, [facility]/pharmacy #[id number] Start Date: 07/11/19 Status: Ordered Lexapro 10 mg oral tablet 1 tablet = 10 mg, By Mouth, Daily, 0 Refills, Maintenance, 03/31/18 13:02:49 EDT Start Date: 03/31/18 Status: Ordered losartan 50 mg oral tablet 50 mg, 1, tablet, By Mouth, Daily, # 90 tablet, Refills 3, Tot. Refills 3, Maintenance, 11/21/18 13:45:07 EDT, Route to Pharmacy Electronically, [id number], [facility]/pharmacy #[id number] Start Date: 11/21/18 Status: Ordered meloxicam [...] Active GERD (gastroesophageal reflux disease) Confirmed Active long-term current use of anticoagulant Confirmed Active H/O suicide attempt Confirmed Active H/O nausea and vomiting Confirmed Active Chronic daily headache Confirmed Active History of alcohol abuse Confirmed Active Hypertension Confirmed Active Insomnia Confirmed Active Kidney lesion Confirmed Active Low back pain Confirmed Active Failed back syndrome, lumbar Confirmed Active 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, unprovoked Vital Signs Most recent to oldest [Reference Range]: 1 Height 168.5 cm (05/26/23 11:11 AM) Weight 84 kg (05/26/23 11:11 AM) Body Mass Index [18.5-24.99 kg/m2] 29.59 kg/m2 *H* (05/26/23 11:11 AM) Social History Social History Type Response Smoking Status Current every day abraahm del angel entered on: 03/31/18 Sex Patient Care team information Care Team Personnel Name: Jennifer Proctor MD Position: S Physician - Primary Care Member Role: PCP Address: Address: [address] [place] [address]- Care Team Related Persons Name: FORTUNATO REY Address: home [address] [place] [address] [address] [place] [address]
--- OUTSIDE RECORDS SUMMARY | 2024-06-25 09:14 | XMS_ITS | Continuity of Care Document ---
Author Organization [facility] Address [address] [place] [address] te[address], [address] [place] [address]- Care Team Providers Care Sales And Marketing Coordinator Name Role Phone Jennifer Proctor MD Primary Care Physician Encounter [facility] Date(s): 05/26/23 - 06/25/23 [facility] [address] [place] [address], [address] [place], [place] [address] Attending Physician: AdmRocio wilson Admitting Physician: AdmtrRocio Referring Physician: Admtr, Ar8 Allergies, Adverse Reactions, Alerts No Known Medication [...] 23-valent vaccine 09/24/14 Given 1Result Comment: [07/02/2017] [facility]: [id number] 2Admin Note: [facility] Medications albuterol CFC free 90 mcg/inh inhalation aerosol 2, puffs, Inhalation, Every 4 hours, PRN, # 1 each, Refills 3, Tot. Refills 3, Maintenance, 12/07/16 16:24:41, Aerosol, Route to Pharmacy Electronically, [id number], [id number], Compound Start Date: 12/07/16 Stop Date: 04/06/17 Status: Ordered Flonase 50 mcg/inh nasal spray 1 sprays, Nares, Both, 2 times a day, PRN Allergy symptoms, # 16 Gm, 5 Refills, Maintenance, 05/04/16 11:46:16, [place], 1 sprays Nares, Both 2 times a day,PRN:Allergy symptoms Start Date: 05/04/16 Status: Ordered Hibiclens 4% soap 1 applicator, Topically, Once, # 960 mL, 0 Refills, Soft Stop, 02/04/18 11:56:53 EDT, 1 applicator Topically Once Start Date: 02/04/18 Status: Ordered hydroCHLOROthiazide 12.5 mg oral capsule See Instructions, # 90 capsule, Refills 3 Tot. Refills 3, TAKE ONE CAPSULE BY MOUTH EVERY DAY, [facility]/pharmacy #[id number] Start Date: 07/11/19 Status: Ordered Lexapro 10 mg oral tablet 1 tablet = 10 mg, By Mouth, Daily, 0 Refills, Maintenance, 03/31/18 13:02:49 EDT Start Date: 03/31/18 Status: Ordered losartan 50 mg oral tablet 50 mg, 1, tablet, By Mouth, Daily, # 90 tablet, Refills 3, Tot. Refills 3, Maintenance, 11/21/18 13:45:07 EDT, Route to Pharmacy Electronically, [id number], [facility]/pharmacy #[id number] Start Date: 11/21/18 Status: Ordered meloxicam [...] Active GERD (gastroesophageal reflux disease) Confirmed Active prison current use of anticoagulant Confirmed Active H/O suicide attempt Confirmed Active H/O nausea and vomiting Confirmed Active Chronic daily headache Confirmed Active History of alcohol abuse Confirmed Active Hypertension Confirmed Active Insomnia Confirmed Active Kidney lesion Confirmed Active Low back pain Confirmed Active Failed back syndrome, lumbar Confirmed Active 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
--- OUTSIDE RECORDS SUMMARY | 2024-06-25 09:14 | XMS_ITS | Continuity of Care Document ---
Author Organization [facility] Address [address] [place] [address]- Care Team Providers Care Paper Winder Name Role Phone Jennifer Proctor MD Primary Care Physician [phone] [facility] Date(s): 06/14/23 - 07/14/23 [facility] [address] [place] [address]- Attending Physician: Rocio Morocho Admitting Physician: AdmtrRocio Referring Physician: Admtr, Ar8 [...] 23-valent vaccine 09/24/14 Given 1Result Comment: [07/02/2017] [facility]: [id number] 2Admin Note: [facility] Medications albuterol CFC free 90 mcg/inh inhalation aerosol 2, puffs, Inhalation, Every 4 hours, PRN, # 1 each, Refills 3, Tot. Refills 3, Maintenance, 12/07/16 16:24:41, Aerosol, Route to Pharmacy Electronically, [id number], [facility]/pharmacy #[id number], Compound Start Date: 12/07/16 Stop Date: 04/06/17 Status: Ordered Flonase 50 mcg/inh nasal spray 1 sprays, Nares, Both, 2 times a day, PRN Allergy symptoms, # 16 Gm, 5 Refills, Maintenance, 05/04/16 11:46:16, [place], 1 sprays Nares, Both 2 times a day,PRN:Allergy symptoms Start Date: 05/04/16 Status: Ordered Hibiclens 4% soap 1 applicator, Topically, Once, # 960 mL, 0 Refills, Soft Stop, 02/04/18 11:56:53 EDT, 1 applicator Topically Once Start Date: 02/04/18 Status: Ordered hydroCHLOROthiazide 12.5 mg oral capsule See Instructions, # 90 capsule, Refills 3 Tot. Refills 3, TAKE ONE CAPSULE BY MOUTH EVERY DAY, [facility]/pharmacy #[id number] Start Date: 07/11/19 Status: Ordered Lexapro 10 mg oral tablet 1 tablet = 10 mg, By Mouth, Daily, 0 Refills, Maintenance, 03/31/18 13:02:49 EDT Start Date: 03/31/18 Status: Ordered losartan 50 mg oral tablet 50 mg, 1, tablet, By Mouth, Daily, # 90 tablet, Refills 3, Tot. Refills 3, Maintenance, 11/21/18 13:45:07 EDT, Route to Pharmacy Electronically, [id number], [facility]/pharmacy #[id number] Start Date: 11/21/18 Status: [...] spine Confirmed Active Morbid obesity Confirmed Active senior living prescription opiate use - methadone and oxycodone [...] Team Personnel Name: Jennifer Proctor MD Position: [facility] Physician - Primary Care Member Role: PCP Address: Address: [address] [place] [address]- Care Team Related Persons Name: FORTUNATO REY Address: home [address] [place] [address]
--- OUTSIDE RECORDS SUMMARY | 2024-06-25 09:14 | XMS_ITS | Continuity of Care Document ---
Author Organization [facility] Address [address] [place] [address]- Care Team Providers Care Technical Support Coordinator Name Role Phone Jennifer Proctor MD Primary Care Physician [phone] Encounter [facility] R [id number] Date(s): 05/05/23 - 07/14/23 [facility] [address] [place] [address]- Attending Physician: Jennifer Sanders MD Admitting Physician: Jennifer Sanders MD Referring Physician: Jennifer Proctor MD Allergies, [...] 23-valent vaccine 09/24/14 Given 1Result Comment: [07/02/2017] [facility]: [id number] 2Admin Note: [facility] Medications albuterol CFC free 90 mcg/inh inhalation aerosol 2, puffs, Inhalation, Every 4 hours, PRN, # 1 each, Refills 3, Tot. Refills 3, Maintenance, 12/07/16 16:24:41, Aerosol, Route to Pharmacy Electronically, [id number], [id number], Compound Start Date: 12/07/16 Stop Date: 04/06/17 Status: Ordered Flonase 50 mcg/inh nasal spray 1 sprays, Nares, Both, 2 times a day, PRN Allergy symptoms, # 16 Gm, 5 Refills, Maintenance, 05/04/16 11:46:16, [place], 1 sprays Nares, Both 2 times a day,PRN:Allergy symptoms Start Date: 05/04/16 Status: Ordered Hibiclens 4% soap 1 applicator, Topically, Once, # 960 mL, 0 Refills, Soft Stop, 02/04/18 11:56:53 EDT, 1 applicator Topically Once Start Date: 02/04/18 Status: Ordered hydroCHLOROthiazide 12.5 mg oral capsule See Instructions, # 90 capsule, Refills 3 Tot. Refills 3, TAKE ONE CAPSULE BY MOUTH EVERY DAY, [facility]/pharmacy #[id number] Start Date: 07/11/19 Status: Ordered Lexapro 10 mg oral tablet 1 tablet = 10 mg, By Mouth, Daily, 0 Refills, Maintenance, 03/31/18 13:02:49 EDT Start Date: 03/31/18 Status: Ordered losartan 50 mg oral tablet 50 mg, 1, tablet, By Mouth, Daily, # 90 tablet, Refills 3, Tot. Refills 3, Maintenance, 11/21/18 13:45:07 EDT, Route to Pharmacy Electronically, [id number], [facility]/pharmacy #[id number] Start Date: 11/21/18 Status: Ordered meloxicam [...] spine Confirmed Active Morbid obesity Confirmed Active prison prescription opiate use - methadone and oxycodone [...] Jennifer Proctor MD Position: [facility] Physician - Primary Care Member Role: PCP Address: Address: [address] [place] [address]- Care Team Related Persons Name: FORTUNATO REY Address: home [address] [facility] [address] [place] [address]
--- OUTSIDE RECORDS SUMMARY | 2024-06-25 09:14 | XMS_ITS | Patient Health Record ---
Author Organization [facility] Address [address] [facility] [address] [place] [address] Care Team Providers Care Seo Team Lead Name Role Phone CHARLEY BELLO Primary Care Provider Rosemary Ramos Unavailable [phone] ALLERGIES No Known Allergies RESULTS Component Value Reference Range Notes FENTANYL SCREEN, URINE Reviewed date:11/18/2023 07:39:28 AM Interpretation: Performing Lab:Testing performed or reported by [facility], a Service of [facility], [address] [place] [id number] Umberto Melendez MD, Cig[employer] CLIA# [id number] Notes/Report: FENTANYL SCREEN, URINE NONE DETECTED (NDT) Assay cutoff 1 ng/ml as fentanyl. This is an unconfirmed screening result. Unconfirmed results are to be used for medical purposes only. Interpretation should be confirmed with clinical symptoms or by an alternative method. ToxASSURE (R) Select 13 (Pre scription Drug Monitoring Screen) Reviewed date:11/29/2023 05:30:56 PM Interpretation: Performing Lab:Testing performed or reported by [facility], a Service of [facility], [facility] [place] [address] Umberto Melendez MD, [employer] CLIA# [id number] Notes/Report: ToxASSURE(R) Select FINAL (NOTE) TOXASSURE SELECT 13 (MW) Test Result Flag Units Drug Present Carboxy-THC 275 ng/mg creat Carboxy-THC is a metabolite of tetrahydrocannabinol (THC). Source of THC is most commonly herbal marijuana or marijuana-based products, but THC is also present in a scheduled prescription medication. Trace amounts of THC can be present in hemp and cannabidiol (CBD) products. This test is not intended to distinguish between tjinr-4-qepmxjkitymywieeifer, the predominant form of THC in most herbal or marijuana-based products, and gzohp-3-ylhslzmmdkrjhnncpgwz. Buprenorphine 29 ng/mg creat Norbuprenorphine 46 ng/mg creat Source of buprenorphine is a scheduled prescription medication. Norbuprenorphine is an expected metabolite of buprenorphine. Test Result Flag Units Ref Range Creatinine 117 mg/dL > EQ 20 Declared Medications: Medication list was not provided. For clinical consultation, please call . CBC With Differential/Platel et-[id number] Reviewed date:05/17/2024 10:08:21 AM Interpretation: Performing Lab:[facility]nii Mckenna, [address] [facility], Phone - [phone], Director - LAGenesis Notes/Report: WBC 5.4 3.4-10.8 x10E3/uL RBC 4.58 4.14-5.80 x10E6/uL Hemoglobin 14.2 13.0-17.7 g/dL Hematocrit 42.4 37.5-51.0 % MCV 93 79-97 fL MCH 31.0 26.6-33.0 pg MCHC 33.5 31.5-35.7 g/dL RDW 14.1 11.6-15.4 % Platelets 252 150-450 x10E3/uL Neutrophils 50 Not Estab. % Lymphs 36 Not Estab. % Monocytes 6 Not Estab. % Eos 6 Not Estab. % Basos 2 Not Estab. % Neutrophils (Absolute) 2.7 1.4-7.0 x10E3/uL Lymphs (Absolute) 1.9 0.7-3.1 x10E3/uL Monocytes(Absolute) 0.3 0.1-0.9 x10E3/uL Eos (Absolute) 0.3 0.0-0.4 x10E3/uL Baso (Absolute) 0.1 0.0-0.2 x10E3/uL Immature Granulocytes 0 Not Estab. % Immature Grans (Abs) 0.0 0.0-0.1 x10E3/uL Basic Metabolic Panel ([id number] Reviewed date:05/17/2024 01:58:35 PM Interpretation: Performing Lab:[facility] [place], [address] [facility], Phone - [phone], Director - Sarthak Notes/Report: Glucose 94 70-99 mg/dL BUN 13 8-27 mg/dL Creatinine 0.62 0.76-1.27 mg/dL eGFR 109 >59 mL/min/1.73 BUN/Creatinine Ratio 21 10-24 Sodium 130 134-144 mmol/L Potassium 3.5 3.5-5.2 mmol/L Chloride 90 96-106 mmol/L Carbon Dioxide, Total 26 20-29 mmol/L Calcium 9.3 8.6-10.2 mg/dL BMP8+eGFR-[id number] Reviewed date:01/31/2024 11:55:23 AM Interpretation: Performing Lab:[facility] [place], Phone - [phone], [facility] Notes/Report: Glucose 76 70-99 mg/dL BUN 13 8-27 mg/dL Creatinine 0.69 0.76-1.27 mg/dL eGFR 106 >59 mL/min/1.73 BUN/Creatinine Ratio 19 10-24 Sodium 130 134-144 mmol/L Potassium 4.0 3.5-5.2 mmol/L Chloride 91 96-106 mmol/L Carbon Dioxide, Total 28 20-29 mmol/L Anion Gap 11.0 10.0-18.0 mmol/L Calcium 9.1 8.6-10.2 mg/dL UA/M w/rflx Culture, Routine -[id number] Reviewed date:01/31/2024 11:55:14 AM Interpretation: Performing Lab:[facility], [address] [place] [address], Phone - [phone], Director - [facility] Notes/Report: Specific [place] TNP Test not pe rformed. No urine specimen received. pH TNP Test not perfor med Urine-Color Appearance WBC Esterase Protein TNP Test not perfor med Glucose TNP Test not perfor med Ketones TNP Test not perfor med Occult Blood Bilirubin Urobilinogen,Semi-Qn Nitrite, Urine Microscopic Examination Microscopic Examination Urinalysis Reflex Hgb A1c with eAG Estimation- [id number] Reviewed date:01/31/2024 11:55:28 AM Interpretation: Performing Lab:[facility], [address] [place] [address], Phone - [phone], Director - MDJodry Notes/Report: Hemoglobin A1c 5.6 4.8-5.6 % . Prediabetes: 5.7 - 6.4 Diabetes: >6.4 Glycemic control for adults with diabetes: <7.0 Estim. Avg Glu (eAG) 114 Request Problem TNP Test not performed. No urine specimen received. TEST: [id number] UA/M w/rflx Culture, Routine CBC, Platelet, No Differenti al-[id number] Reviewed date:01/31/2024 11:55:10 AM Interpretation: Performing Lab:[facility] [place], [address], [place], Phone - [phone], Director - Sarthak Notes/Report: WBC 5.3 3.4-10.8 x10E3/uL RBC 4.39 4.14-5.80 x10E6/uL Hemoglobin 13.6 13.0-17.7 g/dL Hematocrit 39.9 37.5-51.0 % MCV 91 79-97 fL MCH 31.0 26.6-33.0 pg MCHC 34.1 31.5-35.7 g/dL RDW 14.1 11.6-15.4 % Platelets 261 150-450 x10E3/uL NRBC REASON FOR REFERRAL Reason Chronic sinusitis Diagnosis 1 Chronic sinusitis, u nspecified (J32.9) Referral Organization [facility] Referring Provider First Name WHITEHEAD Referring Provider Last Name [facility] Referring Provider Speciality Internal edicine Referred Provider Specialty Ear, nose an d throat surgeon General Notes Referral faxed. Plea se contact pt for scheduling.Suhail Kayla 01/16/2024 07:43:09 PM > Referral Priority Routine Reason Evaluation and manag ement Diagnosis 1 Snoring (R06.83) Referral Organization [facility] Referring Provider First Name CHARLEY Referring Provider Last Name [facility] Referring Provider Speciality Internal edicine Referred Provider Specialty Sleep Medici ne General Notes Referral faxed - Dep t will call patient for scheduling.Getachew Latraya 02/01/2024 04:37:07 PM > Referral Priority Routine Reason Evaluation and manag ement Diagnosis 1 Benign prostatic hyp erplasia with lower urinary tract symptoms (N40.1) Referral Organization [facility] Referring Provider First Name WHITEHEAD Referring Provider Last Name GU Referring Provider Speciality Internal edicine Referred Provider Specialty Urology General Notes Referral faxed - Dep t will call patient for scheduling.Getachew Latraya 02/01/2024 04:39:07 PM > Referral Priority Routine Reason Evaluation and manag ement Diagnosis 1 Chronic sinusitis, u nspecified (J32.9) Referral Organization [facility] Referring Provider First Name WHITEHEAD Referring Provider Last Name [facility] Referring Provider Speciality Internal edicine Referred Provider Specialty Ear, nose an d throat surgeon General Notes Referral sent to [facility] - Dept will call patient for scheduling., Getachew Reuben 02/16/2024 08:12:18 AM > Referral Priority Routine Reason Evaluation and manag ement Diagnosis 1 Other specified diso rders of nose and nasal sinuses (J34.89) Referral Organization [facility] Referring Provider First Name CHARLEY Referring Provider Last Name ACE Referring Provider Speciality Internal M edicine Referred Provider Specialty Ear, nose an d throat surgeon General Notes Referral faxed to [facility] - Dept will call patient for scheduling., ChilelReuben 02/28/2024 09:34:27 AM > Referral Priority Routine MEDICATIONS Medication SIG (Take, Route, Frequency, Duration) Notes Start Date End Date Status buPROPion HCl ER (SR) 100 MG TAKE 1 TABLET BY MOUTH TWICE A DAY for 90 Active Triamcinolone Acetonide 0.5 % 1 application Externally Twice a day for 30 days 02/28/2024 Active Losartan Potassium 100 MG 1 tablet Orall y Once a day for 90 days Active Pantoprazole Sodium 40 MG TAKE 1 TABLET BY MOUTH EVERY DAY FOR 30 DAYS Orally for 90 days Active Buprenorphine HCl-Naloxone HCl 4-1 MG 1 FILM UNDER THE TONGUE AND ALLOW TO DISSOLVE SUBLINGUAL ONCE A DAY RF WHEN DUE 28 DAYS for 28 days To be refilled on the due date. 03/17/2024 Active Finasteride 5 MG 1 tablet Orally Once a day for 30 days 05/04/2023 Active Albuterol Sulfate HFA 108 (90 Base) MCG/ACT 1 puff as needed Inhalation every 6 hrs for 30 days 12/17/2023 Active Labetalol HCl 100 MG 1 tablet Orally Twice a day for 30 days 02/28/2024 Active hydroCHLOROthiazide 25 MG 1 tablet in e morning Orally Once a day for 90 days Active traZODone HCl 100 MG 1 tablet at bedtime Orally Once a day for 90 days Active tiZANidine HCl 4 MG 1 tablet as needed Orally Three times a day for 10 days 07/27/2022 Active Nabumetone 750 MG as directed Orally Twice a day Active Ondansetron 4 MG 1 tablet on the tongue and allow to dissolve Orally 2 times a day for 30 days Not-Taking Flonase Allergy Relief 50 MCG/ACT 1 spray in each nostril Nasally Once a day for 30 day(s) 04/30/2022 Not-Taking amLODIPine Besylate 10 MG TAKE 1 TABLET BY MOUTH EVERY DAY FOR 30 DAYS Orally Once a day for 90 days Active tiZANidine HCl 2 MG 1 tablet as needed Orally Three times a day for 7 days 09/20/2023 Not-Taking Ondansetron HCl 4 MG 1 tablet Orally twice a day for 14 days 06/30/2023 Active Gabapentin 600 MG 1 tablet Orally 3 time a day for 30 days Active Meloxicam 15 MG TAKE 1 TABLET BY MOUTH EVERY DAY for 30 Active Labetalol HCl 200 MG TAKE 1 TABLET BY MOUTH TWICE A DAY for 90 Active Meloxicam 7.5 MG TAKE 1 TABLET BY MOUTH EVERY DAY FOR 30 DAYS for 30 Not-Taking Azithromycin 250 MG 1 tablet Orally 2 tablets on the first day, then 1 tablet daily for 5 days 12/17/2023 Not-Taking Buprenorphine HCl-Naloxone HCl 12-3 MG 1 FILM UNDER THE TONGUE AND ALLOW TO DISSOLVE [id number] SUBLINGUAL ONCE A DAY 28 DAYS for 28 days To be refilled on the due date 03/17/2024 Active predniSONE 20 MG 1 tablet Orally Once a day for 7 days 12/17/2023 Not-Taking Flomax 0.4 MG 1 capsule Orally Once a day for 30 days Active Nicoderm CQ 21 MG/24HR 1 patch to skin Transdermal Once a day for 30 days 05/01/2024 Active IMMUNIZATIONS Vaccine Route Administration Date Status Comme nts Tdap IM Intramuscular 10/21/2022 Administered Shingrix Unknown 07/22/2019 Administered 1st Shingrix Unknown 03/06/2020 Administered 2nd Influenza (split), seasonal, intradermal, preservative free Unknown 05/28/2021 Administered Influenza Unknown 06/09/2022 Administered COVID Moderna Unknown 01/08/2021 Administered COVID Moderna Unknown 02/05/2021 Administered COVID Moderna Unknown 09/17/2021 Administered SOCIAL HISTORY Tobacco Use: Social History Observation Description Date Details (start date - stop date) Current Smoker NA - NA Sex Assigned At : Social History Observation Description Sex Assigned At Unknown Tobacco Use/Smoking Question Answer Notes Are you a current smoker How often do you smoke cigarettes? every day How many cigarettes a day do you smoke? 11-20 Alcohol Screen (Audit-C) Question Answer Notes Did you have a drink containing alcohol in the p ast year? No Points 0 Interpretation Negative PROBLEMS Problem Type ICD Code Onset Dates Problem Status W/U Status Risk SNOMED Code Notes Problem Cannabis abuse, uncomplicated (F12.10) Active confirmed Cannabis abuse (92898377) Problem Nicotine dependence, cigarettes, uncomplicated (F17.210) Active confirmed Tobacco user (562385674) Problem Generalized anxiety disorder (F41.1) Active confirmed Generalized anxiety disorder (34953711) Problem Insomnia, unspecified (G47.00) Active confirmed Insomnia (746704489) Problem Essential (primary) hypertension (I10) Active confirmed Essential hypertension (85063856) Problem Occlusion and stenosis of left carotid artery (I65.22) Active confirmed Left carotid artery occlusion (950004295383462) Problem Chronic sinusitis, unspecified (J32.9) Active confirmed Chronic sinusit is (73213269) Problem Gastro-esophageal reflux disease without esophagitis (K21.9) Active confirmed Gastro-esophage al reflux disease without esophagitis (856106179) Problem Polyp of colon (K63.5) Active confirmed Polyp of colon (01101037) Problem Other intervertebral disc degeneration, thoracolumbar region (M51.35) Active confirmed Degeneration of thoracolumbar intervertebral disc (17972960) Problem Hesitancy of micturition (R39.11) Active confirmed Hesitancy of micturition (1770071) Problem Impaired fasting glucose (R73.01) Active confirmed Impaired fa sting glucose (164782725) Problem Benign prostatic hyperplasia with lower urinary tract symptoms (N40.1) Active confirmed Lower urinary tract symptoms due to benign prostatic hypertrophy (79167305482921) Problem Complaints of memory disturbance (R41.3) Active confirmed Amnesia (81238052) Problem Obstructive sleep apnea (G47.33) Active confirmed Obstructive s leep apnea (48574978) VITAL SIGNS Heart Rate 53 /min 05/16/2024 Temperature 96.9 degrees Fahrenheit 05/16/2024 Blood pressure diastolic 58 mm Hg 05/16/2024 Oximetry 100 % 05/16/2024 Height 67 in 05/16/2024 Blood pressure systolic 108 mm Hg 05/16/2024 Weight 169 lbs 05/16/2024 BMI 26.47 kg/m2 05/16/2024 Encounters Encounter Location Date Provider Diagnosis [place] [address] [place] [address] 08/24/2023 CHARLEY BELLO [address] [place] [address] 06/30/2023 CHARLEY BELLO Other intervertebral disc degeneration, thoracolumbar region M51.35 ; Nicotine dependence, cigarettes, uncomplicated F17.210 and Tobacco abuse counseling Z71.[address] [place] [address] 07/27/2023 CHARLEY BELLO Other intervertebral disc degeneration, thoracolumbar region M51.35 ; Nicotine dependence, cigarettes, uncomplicated F17.210 ; Tobacco abuse counseling Z71.6 and Essential (primary) hypertension I10 [address] [address] 09/16/2023 CHARLEY BELLO Other intervertebral disc degeneration, thoracolumbar region M51.35 ; Nicotine dependence, cigarettes, uncomplicated F17.210 ; Tobacco abuse counseling Z71.6 and Essential (primary) hypertension I10 [address] [address] 09/20/2023 CHARLEY BELLO Other intervertebral disc degeneration, thoracolumbar region M51.35 ; Unspecified fall, initial encounter W19.XXXA ; Nausea with vomiting, unspecified R11.2 and Gastro-esophageal reflux disease without esophagitis K21.[address] [place] [address] 10/13/2023 CHARLEY BELLO Other intervertebral disc degeneration, thoracolumbar region M51.35 ; Nicotine dependence, cigarettes, uncomplicated F17.210 ; Tobacco abuse counseling Z71.6 and Essential (primary) hypertension I10 [address] [address] 2023 CHARLEY BELLO Other intervertebral disc degeneration, thoracolumbar region M51.35 ; Nicotine dependence, cigarettes, uncomplicated F17.210 ; Tobacco abuse counseling Z71.6 and Essential (primary) hypertension [address] [address] 12/10/2023 WHITEHEAD GUL Weakness R53.[address] [place] [address] 12/17/2023 CHARLEY BELLO Other intervertebral disc degeneration, thoracolumbar region M51.35 ; Nicotine dependence, cigarettes, uncomplicated F17.210 ; Tobacco abuse counseling Z71.6 and Cough, unspecified R05.[address] [place] [address] 12/21/2023 CHARLEY BELLO Cough, unspecified R05.[address] [place] [address] 01/11/2024 CHARLEY BELLO Other intervertebral disc degeneration, thoracolumbar region M51.35 ; Nicotine dependence, cigarettes, uncomplicated F17.210 ; Tobacco abuse counseling Z71.6 ; Chronic sinusitis, unspecified J32.9 ; Occlusion and stenosis of left carotid artery I65.22 ; Essential (primary) hypertension I10 and Encounter for screening for malignant neoplasm of prostate Z12.[address] [place] [address] 01/31/2024 CHARLEY BELLO Encounter for genera l adult medical examination without abnormal findings Z00.00 ; Essential (primary) hypertension I10 ; Impaired fasting glucose R73.01 ; Gastro-esophageal reflux disease without esophagitis K21.9 ; Other intervertebral disc degeneration, thoracolumbar region M51.35 ; Nicotine dependence, cigarettes, uncomplicated F17.210 ; Tobacco abuse counseling Z71.6 ; Obstructive sleep apnea G47.33 ; Encounter for screening for malignant neoplasm of prostate Z12.5 and Hesitancy of micturition R39.[address] [place] [address] 02/28/2024 CHARLEY BELLO Other intervertebral disc degeneration, thoracolumbar region M51.35 ; Nicotine dependence, cigarettes, uncomplicated F17.210 ; Tobacco abuse counseling Z71.6 ; Essential (primary) hypertension I10 ; Chronic sinusitis, unspecified J32.9 and Rash and other nonspecific skin eruption R21 [address] [place] [address] 03/13/2024 Teeer Celaium Essential (primary) hypertension I10 [facility] [address] [facility] [address] [place] [address] 03/27/2024 CHARLEY BELLO Other intervertebral disc degeneration, thoracolumbar region M51.35 and Abnormal weight loss R63.4 [facility] [address] [facility] [address] [place] [address] 05/01/2024 CHARLEY BELLO Other intervertebral disc degeneration, thoracolumbar region M51.35 ; Abnormal weight loss R63.4 ; Nicotine dependence, cigarettes, uncomplicated F17.210 and Tobacco abuse counseling Z71.6 [facility] [address] [facility] [address] [place] [address] 05/16/2024 CHARLEY BELLO Encounter for other preprocedural examination Z01.818 ; Nicotine dependence, cigarettes, uncomplicated F17.210 and Tobacco abuse counseling Z71.6 [facility] [address] [facility] [address] [place] [address] 05/12/2024 Ghadeer Celiaum [address] [place] [address] 07/27/2023 WHITEHEAD GUL [address] [place] [address] 08/10/[address] [place] [address] 08/24/2023 CHARLEY BELLO Other intervertebral disc degeneration, thoracolumbar region M51.35 ; Primary hypertension I10 and Hesitancy of micturition R39.[address] [place] [address] 2023 WHITEHEAD Radha [address] [place] [address] 12/17/2023 CHARLEY BELLO Other intervertebral disc degeneration, thoracolumbar region M51.[address] [place] [address] 12/21/2023 [facility] [address] [facility] [address] [place] [address] 01/18/2024 [facility] [address] [facility] [address] [place] [address] 01/19/2024 [facility] [address] [facility] [address] [place] [address] 01/20/2024 [facility] Occlusion and stenos is of left carotid artery I65.22 [facility] [address] [facility] [address] [place] [address] 02/03/2024 [facility] [address] [facility] [address] [place] [address] 02/16/2024 [facility] [address] [facility] [address] [place] [address] 02/28/2024 [facility] [address] [facility] [address] [place] [address] 03/13/2024 [facility] [address] [facility] [address] [facility] [place] [address] 04/12/2024 [facility] [address] [facility] [address] [place] [address] 05/01/2024 [facility] [address] [facility] [address] [place] [address] 05/01/2024 [facility] [address] [facility] [address] [place] [address] 05/08/2024 [facility] Nicotine dependence, cigarettes, uncomplicated F17.210 [facility] [address] [facility] [address] [place] [address] 05/08/2024 [facility] [address] [facility] [address] [place] [address] 05/16/2024 [facility] [address] [facility] [address] [place] [address] 05/18/2024 WHITEHEAD [facility] [address] [facility] [address] [place] [address] 06/15/2024 WHITEHEAD LONG ASSESSMENTS Encounter Date Diagnosis Assessment Notes Treatment Notes Treatment Clinical Notes 07/27/2023 Other intervertebral disc degeneration, thoracolumbar region (ICD-10 - M51.35) 01/20/2024 Occlusion and stenosis of left carotid artery (ICD-10 - I65.22) 12/17/2023 Nicotine dependence, cigarettes, uncomplicated (ICD-10 - F17.210) 12/17/2023 Other intervertebral disc degeneration, thoracolumbar region (ICD-10 - M51.35) 12/10/2023 Weakness (ICD-10 - R53.1) 2023 Nicotine dependence, cigarettes, uncomplicated (ICD-10 - F17.210) 2023 Other intervertebral disc degeneration, thoracolumbar region (ICD-10 - M51.35) 10/13/2023 Nicotine dependence, cigarettes, uncomplicated (ICD-10 - F17.210) 10/13/2023 Other intervertebral disc degeneration, thoracolumbar region (ICD-10 - M51.35) 09/20/2023 Other intervertebral disc degeneration, thoracolumbar region (ICD-10 - M51.35) 09/20/2023 Unspecified fall, initial encounter (ICD-10 - W19.XXXA) 09/16/2023 Nicotine dependence, cigarettes, uncomplicated (ICD-10 - F17.210) 09/16/2023 Other intervertebral disc degeneration, thoracolumbar region (ICD-10 - M51.35) 08/24/2023 Other intervertebral disc degeneration, thoracolumbar region (ICD-10 - M51.35) 05/16/2024 Nicotine dependence, cigarettes, uncomplicated (ICD-10 - F17.210) 05/16/2024 Encounter for other preprocedural examination (ICD-10 - Z01.818) 05/08/2024 Nicotine dependence, cigarettes, uncomplicated (ICD-10 - F17.210) 03/27/2024 Other intervertebral disc degeneration, thoracolumbar region (ICD-10 - M51.35) 03/27/2024 Abnormal weight loss (ICD-10 - R63.4) 03/13/2024 Essential (primary) hypertension (ICD-10 - I10) 01/31/2024 Essential (primary) hypertension (ICD-10 - I10) 01/31/2024 Encounter for genera l adult medical examination without abnormal findings (ICD-10 - Z00.00) 01/11/2024 Nicotine dependence, cigarettes, uncomplicated (ICD-10 - F17.210) 01/11/2024 Other intervertebral disc degeneration, thoracolumbar region (ICD-10 - M51.35) 12/21/2023 Cough, unspecified (ICD-10 - R05.9) 12/17/2023 Other intervertebral disc degeneration, thoracolumbar region (ICD-10 - M51.35) 05/01/2024 Other intervertebral disc degeneration, thoracolumbar region (ICD-10 - M51.35) 05/01/2024 Abnormal weight loss (ICD-10 - R63.4) 02/28/2024 Nicotine dependence, cigarettes, uncomplicated (ICD-10 - F17.210) 02/28/2024 Other intervertebral disc degeneration, thoracolumbar region (ICD-10 - M51.35) 06/30/2023 Other intervertebral disc degeneration, thoracolumbar region (ICD-10 - M51.35) 02/28/2024 Tobacco abuse counseling (ICD-10 - Z71.6) 06/30/2023 Nicotine dependence, cigarettes, uncomplicated (ICD-10 - F17.210) 01/11/2024 Tobacco abuse counseling (ICD-10 - Z71.6) 05/01/2024 Nicotine dependence, cigarettes, uncomplicated (ICD-10 - F17.210) 01/31/2024 Impaired fasting glucose (ICD-10 - R73.01) 05/16/2024 Tobacco abuse counseling (ICD-10 - Z71.6) 08/24/2023 Primary hypertension (ICD-10 - I10) 09/16/2023 Tobacco abuse counseling (ICD-10 - Z71.6) 09/20/2023 Nausea with vomiting , unspecified (ICD-10 - R11.2) 10/13/2023 Tobacco abuse counseling (ICD-10 - Z71.6) 2023 Tobacco abuse counseling (ICD-10 - Z71.6) 12/17/2023 Tobacco abuse counseling (ICD-10 - Z71.6) 07/27/2023 Nicotine dependence, cigarettes, uncomplicated (ICD-10 - F17.210) 07/27/2023 Tobacco abuse counseling (ICD-10 - Z71.6) 12/17/2023 Cough, unspecified (ICD-10 - R05.9) 2023 Essential (primary) hypertension (ICD-10 - I10) 09/20/2023 Gastro-esophageal reflux disease without esophagitis (ICD-10 - K21.9) 10/13/2023 Essential (primary) hypertension (ICD-10 - I10) 09/16/2023 Essential (primary) hypertension (ICD-10 - I10) 08/24/2023 Hesitancy of micturition (ICD-10 - R39.11) 01/31/2024 Gastro-esophageal reflux disease without esophagitis (ICD-10 - K21.9) 01/11/2024 Chronic sinusitis, unspecified (ICD-10 - J32.9) 02/28/2024 Essential (primary) hypertension (ICD-10 - I10) 05/01/2024 Tobacco abuse counseling (ICD-10 - Z71.6) 06/30/2023 Tobacco abuse counseling (ICD-10 - Z71.6) 02/28/2024 Chronic sinusitis, unspecified (ICD-10 - J32.9) 01/11/2024 Occlusion and stenosis of left carotid artery (ICD-10 - I65.22) 01/31/2024 Other intervertebral disc degeneration, thoracolumbar region (ICD-10 - M51.35) 07/27/2023 Essential (primary) hypertension (ICD-10 - I10) 01/31/2024 Nicotine dependence, cigarettes, uncomplicated (ICD-10 - F17.210) 01/11/2024 Essential (primary) hypertension (ICD-10 - I10) 02/28/2024 Rash and other nonspecific skin eruption (ICD-10 - R21) 01/31/2024 Tobacco abuse counseling (ICD-10 - Z71.6) 01/11/2024 Encounter for screening for malignant neoplasm of prostate (ICD-10 - Z12.5) 01/31/2024 Obstructive sleep apnea (ICD-10 - G47.33) 01/31/2024 Encounter for screening for malignant neoplasm of prostate (ICD-10 - Z12.5) 01/31/2024 Hesitancy of micturition (ICD-10 - R39.11) PLAN OF TREATMENT Pending Test Test Name Order Date Chest X-ray PA and lateral 12/21/2023 MRI/MRA Head 01/11/2024 MRI/MRA Head 01/20/2024 CULTURE, STOOL 12/25/2021 BASIC METABOLIC PANEL 04/02/2023 C. DIFFICILE TOXIN PCR 12/25/2021 CBC (COMPLETE BLOOD COUNT) 04/02/2023 FECAL OCCULT BLOOD, IMMUNOCHEMICAL 12/25 HEMOGLOBIN A1C WITH EST GLUCOSE 04/02/20 23 LACTOFERRIN, STOOL 12/25/2021 URINALYSIS W/REFLEX CULTURE 04/02/2023 WBC STOOL 12/25/2021 CT Sinuses WO 01/11/2024 CHEST C- CT 03/27/2024 CT Abdomen & Pelvis W Cont 03/27/2024 Future Test Test Name Order Date Albumin/Creatinine Ratio,Urine-[id number] Lipid Panel-[id number] 01/11/2024 Comp. Metabolic Panel [id number] 2023 PSA (Serial Monitor)-[id number] 01/11/2024 CHEST C- CT 01/31/2024 Albumin/Creatinine Ratio,Urine-[id number] Lipid Panel-[id number] 01/31/2024 PSA (Serial Monitor)-[id number] 01/31/2024 PSA Total (Reflex To Free)-[id number] 2023 Albumin/Creatinine Ratio,Urine-[id number] Lipid Panel-[id number] 05/01/2024 Comp. Metabolic Panel [id number] 2023 CBC, Platelet, No Differential-[id number] Basic Metabolic Panel [phone] Insurance Providers Payer Name Payer Address Payer Phone Subscriber Number Group Number Insured Name Patient Relationship to Insured Coverage Start Date Coverage End Date Medicare [address] [place] [phone] [id number] Parveen Valdovinos Self - patient is the insured 3 [facility] [address] [facility] [place] [phone] [id number] Parveen Valdovinos Self - patient is the insured 0 MEDICAL (GENERAL) HISTORY Medical History History ICD Code Hypertension insomnia DDD cervical radiculopathy Polysubstance use in the past. He used c ocaine and alcohol in the past small left-sided kidney stone solitary pulmonary nodule in right lower lung Surgical History Surgery Date(Month/Year) lumbar spine fusion L4-5 x[address] Avery cervical spine fusion by Dr. Avery and will see Dr Mathis/Dr Moser at [facility] 2020 penile implants, secondary to priapism cholecystectomy mechanical breakdown of peni le prosthesis and replacement, [facility] 04/20/2023 Hospitalization History Reason Date(Month/Year) surgeries
[2024-06-25 10:04] LABS: MANUAL DIFF FLAG NO
[2024-06-25 10:06] LABS: Basophils Absolute Auto 0.1 X10*3/uL (0.0-0.2); Basophils Percent Auto 0.9 % (0-2); Eosinophils Absolute Auto 0.2 X10*3/uL (0.0-0.4); Eosinophils Percent Auto 2.7 % (0-4); Hematocrit 35.5 % (42.0-52.0); Hemoglobin 12.4 g/dl (14.0-18.0); Imm Gran Abs Auto 0.02 X10*3/uL (0.00-0.03); Imm Gran Pct Auto 0.4 % (0.0-0.4); Lymphocytes Absolute Auto 0.9 X10*3/uL (1.2-4.9); Lymphocytes Percent Auto 16.1 % (20-40); Mean Corpuscular HGB Conc 34.9 g/dl (31.0-36.0); Mean Corpuscular Hemoglobin 30.8 pg (27.0-33.0); Mean Corpuscular Volume 88.3 fL (80.0-98.0); Mean Platelet Volume 9.2 fL (9.4-12.4); Monocytes Absolute Auto 0.4 X10*3/uL (0.1-1.2); Monocytes Percent Auto 7.1 % (2-11); Neutrophils Absolute Auto 4.1 x10*3/uL (2.0-8.3); Neutrophils Percent Auto 72.8 % (45-73); Platelet Count 232 X10*3/uL (160-400); Red Blood Count 4.02 X10*6/uL (4.60-5.80); Red Cell Distribution Width 14.5 % (11.0-16.0); White Blood Count 5.6 X10*3/uL (4.8-10.8)
[2024-06-25 10:37] LABS: Alanine Aminotransferase 9 U/L (0-40); Albumin Level 3.7 g/dL (3.5-5.0); Alkaline Phosphatase 135 U/L (39-117); Anion Gap 13 (12-20); Aspartate Amino Transferase 11 U/L (5-37); Bilirubin Total 0.4 mg/dL (0.0-1.0); Blood Urea Nitrogen 8 mg/dL (9-16); Calcium 9.3 mg/dL (8.4-10.2); Carbon Dioxide 28 mmol/L (22-29); Chloride 89 mmol/L (96-108); Estimated Glomerular Filt Rate > 60; Glucose Random 115 mg/dL (60-115); Potassium 4.6 mmol/L (3.3-5.1); Sodium 125 mmol/L (135-145); Total Protein 6.9 g/dL (6.5-8.0)
[2024-06-25] MEDS: iohexoL 350 MG/ML 100 ML INFUS..BTL IV (11:09)
[2024-06-25] MEDS: oxyCODONE HCl Immed Release 5 MG TABLET PO (11:23)
--- NOTE | 2024-06-25 14:23 | PC.NURSE ---
Patient wants to leave AMA state he does not want to wait for ct scan results any longer.
--- NOTE | 2024-06-25 14:28 | PC.NURSE ---
[employer] discussed risks against leaving AMA with pt verbalized understanding of risks and still wanted to leave. IV line pulled out.
[2024-06-25 14:36] VITALS: BP 145/74; PULSE 64; RESP 18; TEMP 36.9; O2SAT 97
== END 2024-06-25 14:40 | disposition left against medical advice (07) ==
PROVIDERS: Registered Nurse Emergency; Emergency Provider Emergency Medicine; PCP Hospitalist
DX: K05.6 Periodontal disease, unspecified (principal); R51.9 Headache, unspecified; K03.81 Cracked tooth; Z79.899 Other long term (current) drug therapy
CPT/HCPCS: 36415; 70487; 80053; 85025; 99283; Q9967

== ENCOUNTER 2024-11-09 08:51 | Outpatient (RCR) | payer MEDICARE, SELFPAY | END 2024-11-30 15:24 | disposition home or self-care (01) | LOC: HO.PT 08:51 | PROVIDERS: PCP Hospitalist; Visit Provider Student in an Organized Health Care Education/Training Program | DX: Z98.1 Arthrodesis status (principal); M54.2 Cervicalgia; M48.02 Spinal stenosis, cervical region; S12.9XXD Fracture of neck, unspecified, subsequent encounter | CPT/HCPCS: 97110; 97112; 97140; 97162; 97530 ==

== ENCOUNTER 2025-02-09 09:00 | Outpatient (RCR) | payer OTHER, MEDICARE, SELFPAY | END 2025-03-23 06:38 | disposition home or self-care (01) | LOC: HO.PTCHIC 09:00 | PROVIDERS: PCP Hospitalist; Visit Provider Student in an Organized Health Care Education/Training Program | DX: M54.2 Cervicalgia (principal); Z98.1 Arthrodesis status | CPT/HCPCS: 97110; 97140; 97163 ==